=== PATIENT | female | born 1945 | race Caucasian/White ===

== ENCOUNTER 2019-05-11 18:15 | Inpatient (IN) | payer MEDICARE, BC ==
[~2019-05-11] VITALS: Ht 157.5 cm; Wt 66.2 kg
--- NOTE | 2019-05-11 18:28 | NUR ---
BB BY EMS TO ER; C/O SEVERE NAUSEA, JUST HAD HER CHEMOTHERAPY TODAY; SHE ALSO C/O FEVER. PATIENT A/OX4, BREATHING EVEN AND UNLABORED, NO SOB NOTED. KEPT COMFORTABLE. ATTACHED TO THE MONITOR, PATIENT REFUSED TO CHANGE INTO GOWN AT THIS TIME.
[2019-05-11] MEDS ORDERED: IV NS 0.9% 1,000 ML BAG IV ONE ×2 (18:30→19:30)
[2019-05-11] MEDS ORDERED: ONDANSETRON HCL/PF 4 MG/2 ML VIAL IVP ONE (18:30)
[2019-05-11] MEDS ORDERED: ONDANSETRON HCL/PF 4 MG/2 ML VIAL ONE ×3 (18:44→20:56)
[2019-05-11] MEDS ORDERED: ACETAMINOPHEN ES 500 MG TABLET ONE (18:49)
[2019-05-11 18:52] LABS: BASOPHILS % (AUTO) 0.7 % (0.0-2.0); HEMATOCRIT 22 % (33-45); HEMOGLOBIN 7.4 g/dL (11.5-14.8); MEAN CORPUSCULAR HGB CONC 35 g/dl (31.0-36.0); MEAN CORPUSCULAR VOLUME 103 fL (82-100); MONOCYTES # (AUTO) 0.1 /CMM (0.1-1.30); MONOCYTES % (AUTO) 5.1 % (2.0-12.0); NEUTROPHILS # (AUTO) 1.7 /CMM (1.8-8.9); NEUTROPHILS % (AUTO) 92.2 % (43.0-81.0)
[2019-05-11] MEDS ORDERED: APIX5TAB PO (19:06)
[2019-05-11] MEDS ORDERED: PRED20TA PO (19:06)
[2019-05-11] MEDS ORDERED: [UNRECOGNIZED DRUG - REMARK] (19:06)
[2019-05-11] MEDS ORDERED: ACET-868 PO (19:06)
[2019-05-11] MEDS ORDERED: PANT40TA2 PO (19:06)
[2019-05-11] MEDS ORDERED: LEVO137T2 PO (19:06)
[2019-05-11] MEDS ORDERED: MELA5TAB PO (19:06)
[2019-05-11] MEDS ORDERED: PEGF6SYR SQ (19:06)
[2019-05-11] MEDS ORDERED: CHOL100044 PO (19:06)
[2019-05-11] MEDS ORDERED: FAMO20TA8 PO (19:06)
[2019-05-11] MEDS ORDERED: DIPH25CA83 PO (19:06)
[2019-05-11 19:07] LABS: ALANINE AMINOTRANSFERASE 13 U/L (12-78); ALKALINE PHOSPHATASE 150 U/L (46-116); ASPARTATE AMINOTRANSFERASE 8 U/L (15-37); BILIRUBIN,DIRECT 0.1 mg/dL (0.0-0.2); BILIRUBIN,TOTAL 0.2 mg/dL (0.2-1.0); CALCIUM, SERUM 8.8 mg/dL (8.5-10.1); CARBON DIOXIDE 24 mmol/L (21-32); CHLORIDE 108 mmol/L (98-107); GLUCOSE 138 mg/dL (74-106); LIPASE 85 U/L (73-393); SODIUM SERUM 141 mmol/L (136-145); TOTAL PROTEIN, SERUM 5.8 g/dL (6.4-8.2); UREA NITROGEN, BLOOD 24 mg/dL (7-18); WHITE BLOOD COUNT (AUTO) 1.9 K/uL (4.3-11.0)
[2019-05-11 19:08] LABS: PLATELET COUNT (AUTO) 49 /CMM (150-450)
--- NOTE | 2019-05-11 19:16 | NUR ---
ASSUMED CARE. PT RESTING IN BED QUIETLY, NO ACUTE DISTRESS NOTED, RESP EVEN AND UNLABORED. PT DENIES PAIN OR DISCOMFORT AT THIS TIME BUT PT STILL C/O GENERALIZED WEAKNESS. PT ON CARDIAC MONITORING, CONTINUOUS POX. PORT-A-CATH NOTED ON THE MIGUEL AND FLUSSHES WELL WITH NO SIGN OF INFILTRATION NOTED. CALL LIGHT WITHIN REACH. WILL CONTINUE TO MONITOR PT CLOSELY.
[2019-05-11] MEDS ORDERED: ACETAMINOPHEN ES 500 MG TABLET PO ONE (19:30)
--- NOTE | 2019-05-11 19:42 | NUR ---
ER MD AT BEDSIDE TO RE-EVAL PT, SPOKE TO PT REGARDING HOSPITAL ADMISSION. PT AGREED. PT C/O NAUSEA. ER MD MADE AWARE WITH ORDERS RECEIVED. WILL CARRY OUT ORDERS.
--- NOTE | 2019-05-11 19:45 | NUR ---
PT MEDICATED ORDERED.
--- NOTE | 2019-05-11 19:46 | NUR ---
ENDORSED TO ED RN FOR OLVIN.
[2019-05-11 19:55] LABS: LYMPHOCYTES % (MANUAL) 4 % (16-48); MONOCYTES % (MANUAL) 6 % (0-11.0); NEUTROPHILS % (MANUAL) 90 (42-76)
[2019-05-11] MEDS ORDERED: ONDANSETRON HCL/PF - ER 4 MG/2 ML VIAL IV ONE ×2 (20:00→23:00)
[2019-05-11 20:26] LABS: APPEARANCE,URINE Slightly Cloudy (CLEAR); BILIRUBIN,URINE Negative (NEGATIVE); BLOOD, URINE Small Ery/uL (NEGATIVE); COLOR,URINE Yellow (YELLOW); KETONES,URINE Negative (NEGATIVE); LEUKOCYTE ESTERASE ,URINE Small (NEGATIVE); NITRITE, URINE Negative (NEGATIVE); PH,URINE 5.5 (5.0-8.0); PROTEIN,URINE 30 mg/dl (NEGATIVE); UGLUCOSE Negative (NEGATIVE); UROBILINOGEN,URINE 0.2 EU/dL (0.2)
[2019-05-11 20:37] LABS: BACTERIA,URINE Many /HPF (None Seen); SQUAMOUS EPITHELIAL CELL,UR Moderate /HPF (None Seen)
--- NOTE | 2019-05-11 20:43 | NUR ---
SPOKE WITH YARI AND PAGED DR. PALM, EGG GRADER DOCTOR FOR DR. ROSE
--- NOTE | 2019-05-11 20:45 | NUR ---
DR. TAVERAS ON THE PHONE WITH DR. PALM
[2019-05-11] MEDS ORDERED: VANCOMYCIN 1 GM VIAL ONE (20:56)
[2019-05-11] MEDS ORDERED: PIPERACILLIN /TAZOBACTAM 3.375 G VIAL IV ONE (20:56)
[2019-05-11] MEDS ORDERED: VANCOMYCIN 1 GM in IV D5W 250 ML IV ONE (21:00)
[2019-05-11] MEDS ORDERED: PIPERACILLIN /TAZOBACTAM 3.375 G in IV D5W 50 ML IV ONE (21:00)
[2019-05-11] MEDS ORDERED: METOCLOPRAMIDE HCL 10 MG/2 ML VIAL ONE (21:29)
[2019-05-11] MEDS ORDERED: METOCLOPRAMIDE HCL 10 MG/2 ML VIAL IV STA (21:33)
--- NOTE | 2019-05-11 21:46 | NUR ---
LACTIC ACID: [id number]
[2019-05-11] MEDS ORDERED: IBUPROFEN 400 MG TABLET PO STA (21:49)
[2019-05-11] MEDS ORDERED: MAG HYDROX/AL HYDROX/SIMETH 30 ML UDC PO PRN (22:00)
[2019-05-11] MEDS ORDERED: HYDROCODONE/APAP 5/325MG 1 EACH TABLET PO PRN (22:00)
[2019-05-11] MEDS ORDERED: Z GUARD REMEDY 2 OZ OINT TP PRN (22:00)
[2019-05-11] MEDS ORDERED: ZOLPIDEM TARTRATE 5 MG TABLET PO PRN (22:00)
[2019-05-11] MEDS ORDERED: MAGNESIUM HYDROXIDE 30 ML UDC PO PRN (22:00)
[2019-05-11] MEDS ORDERED: Medication Not On Formulary EA (Melatonin 10 MG) PO SCH (22:00)
[2019-05-11] MEDS ORDERED: IBUPROFEN 600 MG TABLET PO ONE (22:20)
--- NOTE | 2019-05-11 22:41 | NUR ---
REPORT CALLED TO COMMUNICATIONS CONSULTANTJUDY ROMAN. WILL TRANSPORT PT VIA ACLS PROTOCOL.
[2019-05-11 23:23] LABS: ALBUMIN 2.4 g/dL (3.4-5.0); BILIRUBIN,DIRECT 0.1 mg/dL (0.0-0.2); BILIRUBIN,TOTAL 0.2 mg/dL (0.2-1.0); TOTAL PROTEIN, SERUM 4.7 g/dL (6.4-8.2)
[2019-05-11] MEDS ORDERED: CEFTRIAXONE 1 G in IV D5W 50 ML IV SCH (23:30)
--- NOTE | 2019-05-11 23:30 | NUR ---
JOSS RN NOTES RECEIVED REPORT FROM METER/RELAY TECHNICIAN ED. RECEIVED PATIENT ON AUDREY. PATIENT IS A/A/OX4, ON RA WITH SPO2 OF 96%. NO COMPLAINT OF SOB, NO PAIN. PATIENT COMPLAINS OF NAUSEA AND ASKED FOR MEDICATION. PATIENT PLACED ON SHIP'S CARPENTER WITH ST. SKIN ASSESSMENT HAS BEEN DONE AND PICTURES PLACED IN THE CHART. RIGHT UPPER ARM PORT IS IN PLACE. RIGHT WRIST G20 IV LINE IS PATIENT AND INTACT. ALL SAFETY MEASURES ARE IN PLACE, BED IN LOW, LOCKED POSITION, CALL LIGHT IN PLACE. WILL CONTINUE TO MONITOR PATIENT CLOSELY.
[2019-05-11] MEDS ORDERED: CEFTRIAXONE 1 G VIAL ONE (23:42)
[2019-05-11] MEDS: diphenhydrAMINE HCL 25 MG CAPSULE PO SCH (23:49)
[2019-05-11] MEDS: IV NS 0.9% 1,000 ML IV SCH (23:49)
[2019-05-12] VITALS (10 sets, daily range): BP systolic 105–139; BP diastolic 55–88
--- NOTE | 2019-05-12 07:30 | NUR ---
RN NOTES RECEIVED PATIENT SITTING AT THE EDGE OF THE BED, ORIENTEDX4, ABLE TO MAKE NEEDS KNOWN. NOT ON ANY FORM OF DISTRESS, ON OXYGEN VIA NASAL CANNULA AT 2LPM, NO SOB NOTED. PATIENT NO COMPLAINTS OF PAIN OF ANY KIND. SINUS RHYTHM ON THE MONITOR WITH HR ON THE 80'S. PATIENT WITH CONCERNS REGARDING MEDICATION- ADDRESSED BY INFORMING THAT THE MD WILL BE NOTIFIED REGARDING THE CONCERNS. ENCOURAGE TO HELP FOR HELP/ ASSISTANCE, VERBALIZE FEELING AND CONCERNS THAT I CAN ADDRESS, CALL LIGHT PLACED WITHIN REACH, SAFETY MEASURES OBSERVED AND MAINTAINED, WILL IMPLEMENT ISOLATION PRECAUTIONS, WILL CONTINUE TO MONITOR PATIENT CLOSELY
[2019-05-12 07:31] LABS: CALCIUM, SERUM 8.2 mg/dL (8.5-10.1); MAGNESIUM 1.8 mg/dL (1.8-2.4); PHOSPHORUS 3.3 mg/dL (2.5-4.9); POTASSIUM 3.7 mmol/L (3.5-5.1)
[2019-05-12 07:34] LABS: BASOPHILS % (AUTO) 0.4 % (0.0-2.0); LYMPHOCYTES # (AUTO) 0.1 /CMM (0.8-4.8); LYMPHOCYTES % (AUTO) 2.8 % (20.0-44.0); MEAN CORPUSCULAR HGB CONC 34 g/dl (31.0-36.0); MEAN CORPUSCULAR VOLUME 104 fL (82-100); MONOCYTES # (AUTO) 0.5 /CMM (0.1-1.30); MONOCYTES % (AUTO) 14.8 % (2.0-12.0); NEUTROPHILS # (AUTO) 2.6 /CMM (1.8-8.9); WHITE BLOOD COUNT (AUTO) 3.2 K/uL (4.3-11.0)
[2019-05-12 07:47] LABS: RED BLOOD CELL COUNT(AUTO) 1.83 MIL/uL (4.0-5.2)
[2019-05-12 07:50] LABS: HEMOGLOBIN 6.4 g/dL (11.5-14.8)
[2019-05-12 07:51] LABS: HEMATOCRIT 19 % (33-45); PLATELET COUNT (AUTO) 33 /CMM (150-450)
[2019-05-12] MEDS: PANTOPRAZOLE 40 MG TABLET.DR PO SCH (07:55)
[2019-05-12] MEDS: LEVOTHYROXINE SODIUM 137 MCG TABLET PO SCH (07:55)
[2019-05-12] MEDS: IV NS 0.9% 1,000 ML IV SCH (08:03)
[2019-05-12] MEDS: ONDANSETRON HCL/PF 4 MG/2 ML VIAL IVP PRN ×2 (08:03→18:40)
[2019-05-12] MEDS ORDERED: APIXABAN 5 MG TABLET PO SCH (09:00)
[2019-05-12] MEDS: CHOLECALCIFEROL 1,000 UNIT TABLET (VIT D3) PO SCH (09:01)
[2019-05-12] MEDS: FAMOTIDINE (20 MG) 20 MG TABLET PO SCH (09:01)
[2019-05-12] MEDS: predniSONE 20 MG TABLET PO SCH (09:01)
[2019-05-12 09:28] LABS: BAND % (MANUAL) 7 % (0.0-5.0); EOSINOPHILS % (MANUAL) 1 % (0-4); LYMPHOCYTES % (MANUAL) 6 % (16-48); MONOCYTES % (MANUAL) 13 % (0-11.0); NEUTROPHILS % (MANUAL) 73 (42-76)
--- NOTE | 2019-05-12 12:00 | NUR ---
RN NOTES ADMINISTERED APIXABAN 5MG PO AT THIS TIME AFTER CONFIRMING WITH DR. ZHENG THAT MEDICATION IS OKAY TO ADMINISTERED DESPITE THE CRITICAL VALUES. ALSO SPOKE TO PHARMACIST ON DUE THAT IT IS OKAY TO GIVE MEDICATION DESPITE ANOTHER DOSE IS DUE AT 1700 PM
[2019-05-12] MEDS: CEFTRIAXONE 2 G in IV D5W 100 ML IV SCH (14:07)
[2019-05-12] MEDS: ACETAMINOPHEN 325 MG TABLET PO PRN (16:26)
--- NOTE | 2019-05-12 19:00 | NUR ---
RN NOTES ENDORSED PATIENT FOR CONTINUITY OF CARE. NOT ON ANY FORM OF DISTRESS. S/P 1 UNIT OF PRBC ADMINISTRATION. ALL NURSING NEEDS ATTENDED AND MET. SAFETY MEASURES IN PLACE AT ALL TIMES. CALL LIGHT WITHIN REACH. REVERSE ISOLATION IMPLEMENTED
--- NOTE | 2019-05-12 19:30 | NUR ---
REMOTE ADVISOR NOTE: RECEIVED PT ON BED ALERT AND ORIENTED X3. ABLE TO MAKE NEEDS KNOWN. NO APPARENT DISTRESS NOTED. NO COMPLAINTS OF PAIN OR DISCOMFORT AT THIS TIME. ON ROOM AIR, BREATHING EVEN AND UNLABORED WITH NORMAL RESPIRATIONS. ON TELE MONITOR SINUS RHYTHM HR 62 BPM. IV ON RIGHT WRIST #20 INTACT AND PATENT, IVF INFUSING WELL. KEPT CLEAN, DRY AND COMFORTABLE. CALL LIGHT PLACED WITHIN REACH. SAFETY AND FALL PRECAUTIONS OBSERVED AND MAINTAINED. WILL CONTINUE TO MONITOR PT.
[2019-05-12] MEDS: IV NS 0.9% 1,000 ML IV PRN (21:47)
[2019-05-12] MEDS: diphenhydrAMINE HCL 25 MG CAPSULE PO SCH (21:59)
[2019-05-13] VITALS: BP 132/63
[2019-05-13 04:00] VITALS: BP 133/91
[2019-05-13] MEDS: IV NS 0.9% 1,000 ML IV PRN ×2 (05:42→17:52)
--- NOTE | 2019-05-13 06:32 | NUR ---
APPLIED BEHAVIOR SPECIALIST NOTE: NO CHANGES NOTED THROUGHOUT THE SHIFT. NO APPARENT DISTRESS NOTED. DENIES PAIN AND DISCOMFORT AT THIS TIME. ON ROOM AIR, NO SOB NOTED. IV ON RIGHT WRIST #20 INTACT AND PATENT, IVF INFUSING WELL. KEPT CLEAN, DRY AND COMFORTABLE. CALL LIGHT PLACED WITHIN REACH. WILL ENDORSE TO DAY SHIFT RN FOR CONTINUITY OF CARE.
[2019-05-13] MEDS: LEVOTHYROXINE SODIUM 137 MCG TABLET PO SCH (07:53)
[2019-05-13] MEDS: PANTOPRAZOLE 40 MG TABLET.DR PO SCH (07:53)
[2019-05-13 08:00] VITALS: BP 175/79
--- NOTE | 2019-05-13 08:00 | NUR ---
TELE1/RN AM SHIFT INITIAL NOTES RECEIVED PT AWAKE SITTING IN BED, PT A/O X 4 DENIES ANY SYMPTOMS AT THIS TIME, NO ACUTE CHANGE OF CONDITION. PT ON ROOM AIR SATURATING @ 96%, RESPIRATIONS EVEN & UNLABORED, LUNG SOUNDS CLEAR. ON TELE WITH SINUS RHYTHM, HR 80. WITH ON GOING IN INFUSION OF NS @ 125CC/HR, IV SITE PATENT WITH NO S/S OF INFECTION. PT IS COMFORTABLE AT THIS TIME. CL WITHIN REACHED, SAFETY MAINTAINED AND REVERSE ISOLATION OBSERVED. ON GOING MONITORING.
[2019-05-13 08:02] LABS: BASOPHILS % (AUTO) 0.2 % (0.0-2.0); EOSINOPHILS % (AUTO) 1.4 % (0.0-6.0); HEMATOCRIT 24 % (33-45); HEMOGLOBIN 8.1 g/dL (11.5-14.8); LYMPHOCYTES # (AUTO) 0.1 /CMM (0.8-4.8); LYMPHOCYTES % (AUTO) 1.3 % (20.0-44.0); MEAN CORPUSCULAR HGB CONC 35 g/dl (31.0-36.0); MEAN CORPUSCULAR VOLUME 101 fL (82-100); MONOCYTES # (AUTO) 0.7 /CMM (0.1-1.30); MONOCYTES % (AUTO) 8.6 % (2.0-12.0); NEUTROPHILS # (AUTO) 7.3 /CMM (1.8-8.9); NEUTROPHILS % (AUTO) 88.5 % (43.0-81.0); RED BLOOD CELL COUNT(AUTO) 2.32 MIL/uL (4.0-5.2); WHITE BLOOD COUNT (AUTO) 8.3 K/uL (4.3-11.0)
[2019-05-13] MEDS: CHOLECALCIFEROL 1,000 UNIT TABLET (VIT D3) PO SCH (08:02)
[2019-05-13] MEDS: predniSONE 20 MG TABLET PO SCH (08:02)
[2019-05-13] MEDS: FAMOTIDINE (20 MG) 20 MG TABLET PO SCH (08:02)
[2019-05-13 08:16] LABS: PLATELET COUNT (AUTO) 31 /CMM (150-450)
[2019-05-13 08:17] LABS: CALCIUM, SERUM 8.3 mg/dL (8.5-10.1); MAGNESIUM 1.6 mg/dL (1.8-2.4); POTASSIUM 3.4 mmol/L (3.5-5.1)
[2019-05-13 08:48] LABS: BAND % (MANUAL) 5 % (0.0-5.0); EOSINOPHILS % (MANUAL) 1 % (0-4); MONOCYTES % (MANUAL) 2 % (0-11.0); NEUTROPHILS % (MANUAL) 92 (42-76)
[2019-05-13] MEDS ORDERED: POTASSIUM CHLORIDE 20 MEQ TAB.PRT.SR PO SCH (11:30)
--- NOTE | 2019-05-13 11:30 | NUR ---
TELE1/RN ROUNDS - DR. ZHENG PT SEEN & EXAMINED BY DR. ZHENG, NO NEW ORDERS RECEIVED AT THIS TIME. MONITORING CONTINUED.
[2019-05-13] MEDS: Magnesium 1GM/D5W 100ML PREMIX 100 ML IV SCH ×2 (11:53→15:11)
[2019-05-13 12:00] VITALS: BP 116/75
[2019-05-13 12:09] LABS: THYROID STIMULATING HORMONE 4.344 uIU/mL (0.358-3.74)
--- NOTE | 2019-05-13 12:30 | NUR ---
TELE11/RN PHYSICAL THERAPY PT SEEN & EVALUATED BY PHYSICAL THERAPIST.
[2019-05-13 13:19] LABS: LYMPHOCYTES % (MANUAL) 0 % (16-48)
[2019-05-13] MEDS: CEFTRIAXONE 2 G in IV D5W 100 ML IV SCH (13:28)
[2019-05-13 16:00] VITALS: BP 120/79
--- NOTE | 2019-05-13 17:30 | NUR ---
TELE1/RN PM ROUNDS NO ACUTE CHANGE OF CONDITION. PM CARE PROVIDED. MONITORING CONTINUED.
--- NOTE | 2019-05-13 18:25 | NUR ---
TELE1/RN ROUNDS - DR. WATKINS PT SEEN & EXAMINED BY DR. WATKINS, NO NEW ORDERS RECEIVED AT THIS TIME.
--- NOTE | 2019-05-13 19:15 | NUR ---
TELE1/RN AM SHIFT END NOTES ALL NEEDS MET. NO ACUTE CHANGE OF CONDITION NOTED DURING THE SHIFT. PT ENDORSED TO PM NURSE TO CONTINUE CARE. CL WITHIN REACHED, SAFETY MAINTAINED AND REVERSE ISOLATION OBSERVED.
--- NOTE | 2019-05-13 19:45 | NUR ---
SUSTAINABILITY ENGINEER NOTE: RECEIVED PT SITTING AT THE EDGE OF THE BED, ALERT AND ORIENTED X3. ABLE TO MAKE NEEDS KNOWN. NO APPARENT DISTRESS NOTED. NO COMPLAINTS OF PAIN OR DISCOMFORT AT THIS TIME. ON ROOM AIR, BREATHING EVEN AND UNLABORED WITH NORMAL RESPIRATIONS. ON TELE MONITOR SINUS RHYTHM HR 74 BPM. IV ON RIGHT WRIST #20 INTACT AND PATENT, IVF INFUSING WELL. KEPT CLEAN, DRY AND COMFORTABLE. CALL LIGHT PLACED WITHIN REACH. SAFETY AND FALL PRECAUTIONS OBSERVED AND MAINTAINED. WILL CONTINUE TO MONITOR PT.
[2019-05-13 20:00] VITALS: BP 127/70
[2019-05-13] MEDS: diphenhydrAMINE HCL 25 MG CAPSULE PO SCH (21:32)
[2019-05-14] VITALS: BP 153/76
[2019-05-14] MEDS: IV NS 0.9% 1,000 ML IV PRN (02:12)
[2019-05-14 04:00] VITALS: BP 126/70
[2019-05-14 06:29] LABS: BASOPHILS % (AUTO) 0.2 % (0.0-2.0); EOSINOPHILS % (AUTO) 1.2 % (0.0-6.0); HEMATOCRIT 23 % (33-45); HEMOGLOBIN 7.9 g/dL (11.5-14.8); LYMPHOCYTES # (AUTO) 0.2 /CMM (0.8-4.8); LYMPHOCYTES % (AUTO) 1.8 % (20.0-44.0); MEAN CORPUSCULAR HGB CONC 34 g/dl (31.0-36.0); MEAN CORPUSCULAR VOLUME 101 fL (82-100); MONOCYTES # (AUTO) 0.9 /CMM (0.1-1.30); MONOCYTES % (AUTO) 9.2 % (2.0-12.0); NEUTROPHILS # (AUTO) 8.4 /CMM (1.8-8.9); NEUTROPHILS % (AUTO) 87.6 % (43.0-81.0); RED BLOOD CELL COUNT(AUTO) 2.28 MIL/uL (4.0-5.2); WHITE BLOOD COUNT (AUTO) 9.6 K/uL (4.3-11.0)
[2019-05-14 06:46] LABS: PLATELET COUNT (AUTO) 25 /CMM (150-450)
[2019-05-14 06:52] LABS: CREATININE 0.9 mg/dL (0.6-1.3); MAGNESIUM 1.9 mg/dL (1.8-2.4); PHOSPHORUS 3.1 mg/dL (2.5-4.9); POTASSIUM 3.7 mmol/L (3.5-5.1)
--- NOTE | 2019-05-14 06:52 | NUR ---
BULB TESTER NOTE: LAB CALLED REGARDING CRITICAL RESULT FOR PLATELET 25. DR. PORTILLO NOTIFIED WITH NO NEW ORDERS. WILL ENDORSE TO DAY SHIFT RN FOR CONTINUITY OF CARE.
--- NOTE | 2019-05-14 07:19 | NUR ---
HIGHWAY DESIGN ENGINEER NOTE: NO CHANGES NOTED THROUGHOUT THE SHIFT. NO APPARENT DISTRESS NOTED. DENIES PAIN AND DISCOMFORT AT THIS TIME. ON ROOM AIR, BREATHING EVEN AND UNLABORED WITH NORMAL RESPIRATION. IV ON RIGHT WRIST #20 INTACT AND PATENT, IVF INFUSING WELL. KEPT CLEAN, DRY AND COMFORTABLE. CALL LIGHT PLACED WITHIN REACH. WILL ENDORSE TO DAY SHIFT RN FOR CONTINUITY OF CARE.
[2019-05-14 07:20] LABS: BAND % (MANUAL) 6 % (0.0-5.0); EOSINOPHILS % (MANUAL) 2 % (0-4); LYMPHOCYTES % (MANUAL) 3 % (16-48); MONOCYTES % (MANUAL) 7 % (0-11.0); NEUTROPHILS % (MANUAL) 82 (42-76)
[2019-05-14 08:00] VITALS: BP 156/86
--- NOTE | 2019-05-14 08:00 | NUR ---
TELE1/RN AM SHIFT INITIAL NOTES RECEIVED PT AWAKE SITTING IN BED, PT A/O X 3, COMPLAINT OF BEING NAUSEAS, NO ACUTE CHANGE OF CONDITION NOTED. ON ROOM AIR SATURATING @ 97%, RESPIRATIONS EVEN & UNLABORED, LUNG SOUNDS CLEAR. ON TELE MONITORING, SINUS RHYTHM, HR 77. WITH ON GOING IV INFUSION OF NS @ 125CC/HR, IV SITE PATENT WITH NO S/S OF INFECTION. SCHEDULED AM MEDS TO BE GIVEN WELL PRN ZOFRAN. CL WITHIN REACHED, SAFETY MAINTAINED AND REVERSE ISOLATION OBSERVED. ON GOING MONITORING.
[2019-05-14 08:08] LABS: IMMUNOGLOBULIN A, SERUM 6 mg/dL (64-422); IMMUNOGLOBULIN G, SERUM 238 mg/dL (700-1600); IMMUNOGLOBULIN M, SERUM 10 mg/dL (26-217)
[2019-05-14] MEDS: PANTOPRAZOLE 40 MG TABLET.DR PO SCH (08:08)
[2019-05-14] MEDS: CHOLECALCIFEROL 1,000 UNIT TABLET (VIT D3) PO SCH (08:08)
[2019-05-14] MEDS: predniSONE 20 MG TABLET PO SCH (08:08)
[2019-05-14] MEDS: LEVOTHYROXINE SODIUM 137 MCG TABLET PO SCH (08:08)
[2019-05-14] MEDS: FAMOTIDINE (20 MG) 20 MG TABLET PO SCH (08:08)
[2019-05-14] MEDS: ONDANSETRON HCL/PF 4 MG/2 ML VIAL IVP PRN (08:09)
[2019-05-14 09:07] LABS: IMMUNOGLOBULIN A, SERUM <5 mg/dL (64-422); IMMUNOGLOBULIN G, SERUM 163 mg/dL (700-1600); IMMUNOGLOBULIN M, SERUM 8 mg/dL (26-217)
[2019-05-14] MEDS: ACETAMINOPHEN 325 MG TABLET PO PRN (10:27)
[2019-05-14 12:00] VITALS: BP 143/62
[2019-05-14] MEDS: CEFTRIAXONE 2 G in IV D5W 100 ML IV SCH (12:11)
--- NOTE | 2019-05-14 13:05 | NUR ---
TELE1/RN ROUNDS - DR. ZHENG PT SEEN & EXAMINED BY DR. ZHENG. NO NEW ORDER RECEIVED AT THIS TIME.
--- NOTE | 2019-05-14 14:49 | NUR ---
TELE1/DIRECTOR OF RESIDENTIAL SERVICES OF CARE PT ENDORSED TO NURSE PAM TO CONTINUE CARE.
--- NOTE | 2019-05-14 14:50 | NUR ---
RN NOTE RECEIVED REPORT FROM JUDY WOLF. PATIENT IN BED, AWAKE AND ALERTX4. NO COMPLAINS OF ANY PAIN NOR SOB AT THIS TIME.
[2019-05-14 16:00] VITALS: BP 149/80
--- NOTE | 2019-05-14 19:12 | NUR ---
RN CLOSING NOTE PATIENT IN BED AWAKE AND ALERT. NO COMPLAINS OF ANY PAIN NO SOB AT THIS TIME. ALL MEDS GIVEN THIS AM. PLATELETS STILL LOW, MD AWARE, NO NEW ORDERS. BED LOCKED AND IN LOWEST POSITION. CALL LIGHT WITHIN REACH. WILL ENDORSE TO NOC SHIFT
[2019-05-14 20:00] VITALS: BP 128/73
--- NOTE | 2019-05-14 20:00 | NUR ---
PM RN INITIAL NOTES RECEIVED BEDSIDE REPORT FROM AM RN. PT AWAKE SITTING IN BED, PT A/O X 4, NO COMPLAINS OF PAIN AT THIS TIME, ON ROOM AIR SATURATING @ 98%, RESPIRATIONS EVEN & UNLABORED, LUNG SOUNDS CLEAR. ON TELE MONITORING, SINUS RHYTHM. IV SITE PATENT WITH NO S/S OF INFECTION. CL WITHIN REACHED, SAFETY MAINTAINED AND REVERSE ISOLATION OBSERVED. ON GOING MONITORING.
[2019-05-14] MEDS: diphenhydrAMINE HCL 25 MG CAPSULE PO SCH (22:30)
[2019-05-15] VITALS: BP 137/69
[2019-05-15 04:00] VITALS: BP 132/67
[2019-05-15 06:28] LABS: BASOPHILS % (AUTO) 0.1 % (0.0-2.0); EOSINOPHILS % (AUTO) 1.4 % (0.0-6.0); HEMATOCRIT 21 % (33-45); HEMOGLOBIN 7.6 g/dL (11.5-14.8); LYMPHOCYTES # (AUTO) 0.1 /CMM (0.8-4.8); LYMPHOCYTES % (AUTO) 1.1 % (20.0-44.0); MEAN CORPUSCULAR HGB CONC 36 g/dl (31.0-36.0); MEAN CORPUSCULAR VOLUME 99 fL (82-100); MONOCYTES # (AUTO) 0.9 /CMM (0.1-1.30); MONOCYTES % (AUTO) 8.6 % (2.0-12.0); NEUTROPHILS % (AUTO) 88.8 % (43.0-81.0); RED BLOOD CELL COUNT(AUTO) 2.15 MIL/uL (4.0-5.2); WHITE BLOOD COUNT (AUTO) 10.1 K/uL (4.3-11.0)
[2019-05-15 06:47] LABS: PLATELET COUNT (AUTO) 18 /CMM (150-450)
[2019-05-15 06:51] LABS: CALCIUM, SERUM 8.1 mg/dL (8.5-10.1); CREATININE 0.8 mg/dL (0.6-1.3); MAGNESIUM 1.8 mg/dL (1.8-2.4); PHOSPHORUS 3.5 mg/dL (2.5-4.9); POTASSIUM 3.5 mmol/L (3.5-5.1)
--- NOTE | 2019-05-15 07:07 | NUR ---
RN NOTES GOT A CALL FROM LAB BHAVIN PATIENT'S PLATELETS ARE 18. MD PORTILLO NOTIFIED. 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 PT IS IN BED RESTING. NO ACUTE CHANGES NOTED DURING MY 12 HR SHIFT.
[2019-05-15] MEDS: ONDANSETRON HCL/PF 4 MG/2 ML VIAL IVP PRN ×2 (07:24→16:26)
[2019-05-15 08:00] VITALS: BP 157/77
--- NOTE | 2019-05-15 08:00 | NUR ---
TELE1/RN AM SHIFT INITIAL NOTES RECEIVED PT AWAKE SITTING IN BED, PT A/O X 4, DENIES ANY SYMPTOMS AT THIS TIME, NO CHANGE OF CONDITION, LUNG SOUNDS CLEAR. ON TELE MONITORING, SINUS RHYTHM, HR 77. IV SITE FLUSHED, PATENT WITH NO S/S OF INFECTION, SL. SCHEDULED AM MEDS TO BE GIVEN. CL WITHIN REACHED, SAFETY MAINTAINED AND REVERSE ISOLATION OBSERVED. ON GOING MONITORING.
[2019-05-15 08:33] LABS: BAND % (MANUAL) 8 % (0.0-5.0); LYMPHOCYTES % (MANUAL) 2 % (16-48); MONOCYTES % (MANUAL) 6 % (0-11.0); NEUTROPHILS % (MANUAL) 84 (42-76)
[2019-05-15] MEDS: LEVOTHYROXINE SODIUM 137 MCG TABLET PO SCH (08:41)
[2019-05-15] MEDS: PANTOPRAZOLE 40 MG TABLET.DR PO SCH (08:41)
[2019-05-15] MEDS: FAMOTIDINE (20 MG) 20 MG TABLET PO SCH (08:41)
[2019-05-15] MEDS: predniSONE 20 MG TABLET PO SCH (08:41)
[2019-05-15] MEDS: CHOLECALCIFEROL 1,000 UNIT TABLET (VIT D3) PO SCH (08:42)
--- NOTE | 2019-05-15 11:30 | NUR ---
MS1/RN GRISELDA - Ant FINLEY, CAMMY PT SEEN & EXAMINED BY CAMMY FINLEY. NO NEW ORDER RECEIVED AT THIS TIME.
[2019-05-15] MEDS ORDERED: LEVO750T21 PO (11:38)
[2019-05-15] MEDS: CEFTRIAXONE 2 G in IV D5W 100 ML IV SCH (12:58)
[2019-05-15 16:00] VITALS: BP_SYST 118; BP_SYST 142; BP_DIAS 56; BP_DIAS 79
--- NOTE | 2019-05-15 17:00 | NUR ---
MS1/RN AFTERNOON ROUNDS NO CHANGE OF CONDITION. PT'S PRESCRIPTION FAXED TO PHARMACY. PT WILL BE DISCHARGE HOME LATER THIS EVENING.
--- NOTE | 2019-05-15 19:29 | NUR ---
MS1/RN AM SHIFT END NOTES ALL NEEDS MET. NO ACUTE CHANGE OF CONDITION NOTED DURING THE SHIFT. PT ENDORSED TO PM NURSE TO COMPLETE DISCHARGE PROTOCOLS. CL WITHIN REACHED AND SAFETY MAINTAINED.
[2019-05-15 20:00] VITALS: BP 144/75
--- NOTE | 2019-05-15 20:04 | NUR ---
RN NOTE PATIENT LEFT HOME WITH HOME HEALTH, NO DISTRESS NOTED, VITAL SIGNS STABLE, REMOVED IV FROM RIGHT WRIST, NO S/S OF INFECTION/REDNESS/BLEEDING NOTED, SKIN PICTURES TAKING BY AM SHIFT PLACED IN THE CHART, BELONGING'S LIST SIGNED AND IN THE CHART, PRESCRIPTION FOR LEVOQUIN PROVIDED TO PATIENT AND COPY IS PLACED IN THE CHART, ON ROOM AIR, AMBULATES STEADILY WITH WALKER, ACCOMPANIED WITH 2 NURSES AND DAUGHTER TO THE CAR, RIGHT UPPER ARM PORT CATH FOR CHEMOTHERAPY IN PLACE/INTACT, ALL SAFETY MEASURES TAKEN
[2019-05-16 05:11] LABS: *SPE A/G RATIO 1.2 (0.7-1.7); *SPE ALBUMIN 2.4 g/dL (2.9-4.4); *SPE ALPHA-1-GLOBULIN 0.4 g/dL (0.0-0.4); *SPE ALPHA-2-GLOBULIN 0.8 g/dL (0.4-1.0); *SPE BETA GLOBULIN 0.8 g/dL (0.7-1.3); *SPE M-SPIKE Not Observed g/dL (Not Observed); *SPEGAMMA GLOBULIN 0.1 g/dL (0.4-1.8)
[2019-05-16 07:10] LABS: *IFE IMMUNOFIXATION RESULT Note: (.)
[2019-05-16 08:09] LABS: *SPE A/G RATIO 1.2 (0.7-1.7); *SPE ALBUMIN 2.8 g/dL (2.9-4.4); *SPE ALPHA-1-GLOBULIN 0.4 g/dL (0.0-0.4); *SPE ALPHA-2-GLOBULIN 0.9 g/dL (0.4-1.0); *SPE BETA GLOBULIN 0.8 g/dL (0.7-1.3); *SPE GLOBULIN, TOTAL 2.3 g/dL (2.2-3.9); *SPE M-SPIKE Not Observed g/dL (Not Observed); *SPEGAMMA GLOBULIN 0.2 g/dL (0.4-1.8)
[2019-06-06] MEDS ORDERED: LIDO30AD10 TP (11:16)
[2019-06-06] MEDS ORDERED: APIX5TAB4 PO (11:16)
[2019-06-06] MEDS ORDERED: ONDA4TAB5 SL (11:20)
[2019-06-06] MEDS ORDERED: MULT1TAB73 PO (11:21)
[2019-06-06] MEDS ORDERED: PROT946L PO (11:22)
[2019-06-06] MEDS ORDERED: CEFE2FRO IV (11:28)
== END 2019-05-15 19:52 | disposition home or self-care (01) | DRG 871 ==
LOC: ER 18:18 → TELE1 20:00 → MEDSG1 05-15 11:00
PROVIDERS: ADMIT Family Medicine; ATTEND Nurse Practitioner Acute Care
PROC: 30233N1 Transfusion of Nonautologous Red Blood Cells into Peripheral Vein, Percutaneous Approach (ICD-10-PCS; principal; 2019-05-12)
DX: A41.51 Sepsis due to Escherichia coli [E. coli] (principal); D61.810 Antineoplastic chemotherapy induced pancytopenia; N39.0 Urinary tract infection, site not specified; E87.2 Acidosis; E44.1 Mild protein-calorie malnutrition; C83.30 Diffuse large B-cell lymphoma, unspecified site; Z92.21 Personal history of antineoplastic chemotherapy; Z90.710 Acquired absence of both cervix and uterus; Z90.12 Acquired absence of left breast and nipple; Z86.718 Personal history of other venous thrombosis and embolism; Z85.3 Personal history of malignant neoplasm of breast; Z79.01 Long term (current) use of anticoagulants; Z85.828 Personal history of other malignant neoplasm of skin; E89.0 Postprocedural hypothyroidism; K21.9 Gastro-esophageal reflux disease without esophagitis; Z80.3 Family history of malignant neoplasm of breast; Z79.899 Other long term (current) drug therapy; D63.8 Anemia in other chronic diseases classified elsewhere; B96.89 Other specified bacterial agents as the cause of diseases classified elsewhere; R73.9 Hyperglycemia, unspecified; T45.1X5A Adverse effect of antineoplastic and immunosuppressive drugs, initial encounter; Y92.009 Unspecified place in unspecified non-institutional (private) residence as the place of occurrence of the external cause
CPT/HCPCS: 36415; 70450-TC; 71045-TC; 80048-TC; 80061-TC; 80076-TC; 81000-TC; 82728-TC; 82784; 83540-TC; 83605-TC; 83615-TC; 83690-TC; 83735-TC; 84100-TC; 84155; 84165; 84439-TC; 84443-TC; 84484-TC; 85025-TC; 85730-TC; 86334; 86850-TC; 86921-TC; 87040-TC; 87081-TC; 87086-TC; 87186-TC; 97110-TC; 97116-TC; 97530-TC; G0378; J0696; J2405; J2543; J2765; J3370; J3475; J3490; J7030; J7050; J7060; P9016-BL; Q0163

== ENCOUNTER 2019-05-17 19:19 | Inpatient (IN) | payer MEDICARE, BC ==
[~2019-05-17] VITALS: Ht 157.5 cm; Wt 61.2 kg
[~2019-05-17 19:19] MED LIST: ACET-868 PO; CHOL100044 PO; DIPH25CA83 PO; FAMO20TA8 PO; LEVO137T2 PO; LEVO750T21 PO; MELA5TAB PO; PANT40TA2 PO; PEGF6SYR SQ; PRED20TA PO; [UNRECOGNIZED DRUG - REMARK]
--- NOTE | 2019-05-17 19:30 | NUR ---
PT BIB DAUGHTER VIA W/C C/O INCREASED GENERALIZED WEAKNESS, SOB X TODAY, RECENTLY D/C [facility] LAST TUESDAY FOR SEPSIS, CURRENLTY ON CHEMO FOR NONHODGKINS LYMPHOMA, LAST CHEMO . AOX4, AFEBRILE W/ RESP EVEN & UNLABORED, ASSISTED TO AUDREY, ON CONTINUOUS PULSE-OX W/ CARDIAC MONITORING. PENDING FURTHER NIKITA BREWSTER MD.
--- NOTE | 2019-05-17 19:55 | NUR ---
DR. ROSARIO AT BEDSIDE FOR EVAL.
[2019-05-17 20:00] VITALS: BP 147/72
[2019-05-17 20:28] LABS: BASOPHILS % (AUTO) 0.3 % (0.0-2.0); EOSINOPHILS % (AUTO) 1.1 % (0.0-6.0); HEMATOCRIT 22 % (33-45); HEMOGLOBIN 7.5 g/dL (11.5-14.8); LYMPHOCYTES # (AUTO) 0.1 /CMM (0.8-4.8); LYMPHOCYTES % (AUTO) 0.8 % (20.0-44.0); MEAN CORPUSCULAR HGB CONC 34 g/dl (31.0-36.0); MEAN CORPUSCULAR VOLUME 100 fL (82-100); MONOCYTES # (AUTO) 0.8 /CMM (0.1-1.30); MONOCYTES % (AUTO) 8.4 % (2.0-12.0); NEUTROPHILS # (AUTO) 8.7 /CMM (1.8-8.9); NEUTROPHILS % (AUTO) 89.4 % (43.0-81.0); RED BLOOD CELL COUNT(AUTO) 2.19 MIL/uL (4.0-5.2); WHITE BLOOD COUNT (AUTO) 9.8 K/uL (4.3-11.0)
[2019-05-17 20:38] LABS: PLATELET COUNT (AUTO) 11 /CMM (150-450)
[2019-05-17 20:39] LABS: CALCIUM, SERUM 8.7 mg/dL (8.5-10.1); CREATININE 0.9 mg/dL (0.6-1.3); POTASSIUM 3.9 mmol/L (3.5-5.1)
--- NOTE | 2019-05-17 20:49 | NUR ---
I&O CATH DONE, URINE SAMPLE COLLECTED AND SENT TO LAB.
[2019-05-17 20:57] LABS: ALBUMIN 3.2 g/dL (3.4-5.0); BILIRUBIN,DIRECT 0.2 mg/dL (0.0-0.2); BILIRUBIN,TOTAL 0.7 mg/dL (0.2-1.0); TOTAL PROTEIN, SERUM 5.2 g/dL (6.4-8.2)
[2019-05-17 21:07] LABS: APPEARANCE,URINE Clear (CLEAR); BILIRUBIN,URINE Negative (NEGATIVE); BLOOD, URINE Trace-intact Ery/uL (NEGATIVE); COLOR,URINE Yellow (YELLOW); KETONES,URINE Negative (NEGATIVE); LEUKOCYTE ESTERASE ,URINE Negative (NEGATIVE); NITRITE, URINE Negative (NEGATIVE); PH,URINE 7.5 (5.0-8.0); PROTEIN,URINE Negative (NEGATIVE); UGLUCOSE Negative (NEGATIVE); UROBILINOGEN,URINE 0.2 EU/dL (0.2)
[2019-05-17 21:15] LABS: BACTERIA,URINE Rare /HPF (None Seen); SQUAMOUS EPITHELIAL CELL,UR Few /HPF (None Seen); WBC,URINE NONE SEEN /HPF (0-3)
[2019-05-17 21:38] LABS: BAND % (MANUAL) 1 % (0.0-5.0); LYMPHOCYTES % (MANUAL) 3 % (16-48); MONOCYTES % (MANUAL) 7 % (0-11.0); NEUTROPHILS % (MANUAL) 89 (42-76)
--- NOTE | 2019-05-17 22:13 | NUR ---
SAMY VIGILP AT BEDSIDE TO [facility] [place].
--- NOTE | 2019-05-17 22:29 | NUR ---
REPORT CALLED TO M/S JUDY MCCLURE. WILL TRANSPORT PT TO ROOM 325-1
--- NOTE | 2019-05-17 22:40 | NUR ---
JUDY MS ADMISSION NOTES RECEIVED PATIENT FROM ER VIA [facility]. DX. THROMBOCYTOPENIA. PATIENT IS ALERT AND ORIENTED X4, VERBALLY [id number], ABLE TO MAKE NEEDS KNOWN. BREATHING EVEN AND UNLABORED. NO SOB NOTED. TOLERATING ROOM AIR. DENIES ANY PAIN OR DISCOMFORT. DENIES CP. PATIENT STATES SHE HAS NAUSEA BUT NOT NEEDED ANY MEDICATION AT THE MOMENT. IV ON RIGHT FOREARM INTACT AND PATENT. SKIN DRY AND WARM TO TOUCH. AFEBRILE. SKIN ASSESSMENT DONE WITH PICTURES TAKEN AND PLACED IN CHART. BELONGINGS ACCOUNTED FOR. ORIENTED TO THE USE OF UNIT AMENITIES. INSTRUCTED ON THE USE OF CALL LIGHT. ALL OTHER NEEDS ATTENDED TO. SAFETY MEASURES IN PLACE. CALL LIGHT WITHIN REACH. WILL CONTINUE TO MONITOR. Addendum: 05/18/19 at 0038 by KAMI WADDELL RN NO SIGNS OF BLEEDING.
[2019-05-17] MEDS ORDERED: MAGNESIUM HYDROXIDE 30 ML UDC PO PRN (23:30)
[2019-05-17] MEDS ORDERED: MAG HYDROX/AL HYDROX/SIMETH 30 ML UDC PO PRN (23:30)
[2019-05-17] MEDS ORDERED: ACETAMINOPHEN 325 MG TABLET PO PRN (23:30)
[2019-05-17] MEDS ORDERED: Z GUARD REMEDY 2 OZ OINT TP PRN (23:30)
[2019-05-18] VITALS (8 sets, daily range): BP systolic 130–149; BP diastolic 61–76
[2019-05-18] MEDS: IV NS 0.9% 1,000 ML IV PRN ×2 (00:16→16:02)
[2019-05-18 06:44] LABS: CALCIUM, SERUM 8.5 mg/dL (8.5-10.1); CREATININE 0.8 mg/dL (0.6-1.3); PHOSPHORUS 3.5 mg/dL (2.5-4.9); POTASSIUM 4.1 mmol/L (3.5-5.1)
--- NOTE | 2019-05-18 06:44 | NUR ---
RN MS NOTES PATIENT REQUESTED FOR A SPECIFIC BREAKFAST THIS AM. VERIFIED WITH MITRA FROM [facility] THAT THEY RECEIVED PATIENT'S ORDER.
--- NOTE | 2019-05-18 06:45 | NUR ---
RN MS CLOSING NOTES PATIENT AWAKE, AND RESTING IN BED. NO ACUTE CHANGES OVERNIGHT. BREATHING EVEN AND UNLABORED. NO SOB NOTED. ON ROOM AIR. IV ON RIGHT FOREARM INTACT AND PATENT WITH IVF INFUSING. DENIES PAIN OR DISCOMFORT. DENIES CP, DENIES N/V. NO BLEEDING NOTED. KEPT CLEAN DRY AND COMFORTABLE. ALL OTHER NEEDS ATTENDED TO. SAFETY MEASURES IN PLACE. CALL LIGHT WITHIN REACH. WILL ENDORSE TO ONCOMING NURSE FOR OLVIN.
[2019-05-18] MEDS: LEVOTHYROXINE SODIUM 137 MCG TABLET PO SCH (06:56)
[2019-05-18] MEDS: PANTOPRAZOLE 40 MG TABLET.DR PO SCH (06:56)
[2019-05-18] MEDS: ACETAMINOPHEN 325 MG TABLET PO PRN (06:56)
[2019-05-18 06:59] LABS: BASOPHILS % (AUTO) 0.1 % (0.0-2.0); EOSINOPHILS % (AUTO) 1.2 % (0.0-6.0); HEMATOCRIT 21 % (33-45); HEMOGLOBIN 7.3 g/dL (11.5-14.8); LYMPHOCYTES # (AUTO) 0.1 /CMM (0.8-4.8); LYMPHOCYTES % (AUTO) 1.8 % (20.0-44.0); MEAN CORPUSCULAR HGB CONC 35 g/dl (31.0-36.0); MEAN CORPUSCULAR VOLUME 99 fL (82-100); MONOCYTES # (AUTO) 0.5 /CMM (0.1-1.30); MONOCYTES % (AUTO) 7.2 % (2.0-12.0); NEUTROPHILS # (AUTO) 6.8 /CMM (1.8-8.9); NEUTROPHILS % (AUTO) 89.7 % (43.0-81.0); RED BLOOD CELL COUNT(AUTO) 2.12 MIL/uL (4.0-5.2); WHITE BLOOD COUNT (AUTO) 7.6 K/uL (4.3-11.0)
[2019-05-18 07:09] LABS: PLATELET COUNT (AUTO) 11 /CMM (150-450)
--- NOTE | 2019-05-18 07:10 | NUR ---
RN MS NOTES RECEIVED CRITICAL RESULT FOR PLATELET 11. NO CHANGE FROM YESTERDAY. ENDORSED TO JUDY NIELSON.
--- NOTE | 2019-05-18 07:15 | NUR ---
MS RN OPENING NOTES RECEIVED PT IN BED, AWAKE, A/O X4. TOLERATING RA, WITH NO ACUTE RESPIRATORY DISTRESS NOTED. PT DENIES ANY PAIN OR DISCOMFORT AT THIS TIME. PT ALSO DENIES ANY CONCERNS OR QUESTIONS AT THE MOMENT. IVF NS AT 75 ML/HR TO RFAG20, INTACT AND FLUID INFUSING WELL. PT KEPT COMFORTABLE. PT'S BED IN LOWEST, LOCKED POSITION X3. CALL LIGHT KEPT WITHIN REACH. WILL CONTINUE PLAN OF CARE.
[2019-05-18] MEDS ORDERED: PANTOPRAZOLE 40 MG TABLET.DR PO SCH (07:30)
[2019-05-18] MEDS: predniSONE 20 MG TABLET PO SCH (08:18)
[2019-05-18] MEDS: FAMOTIDINE (20 MG) 20 MG TABLET PO SCH (08:18)
[2019-05-18] MEDS: CHOLECALCIFEROL 1,000 UNIT TABLET (VIT D3) PO SCH (08:18)
[2019-05-18] MEDS: ENOXAPARIN SODIUM 40 MG/0.4 ML DISP.SYRIN SQ SCH (08:21)
--- NOTE | 2019-05-18 08:45 | NUR ---
MS RN NOTES BLOOD BANK TECH CALLED REGARDING STANDING ORDER FOR PLATELETS TO REPLACE IF <20. BLOOD BANK TECH STATED IT IT'S ROUTINE PRODUCT WONT BE AVAILABLE UNTIL LATE IN THE AFTERNOON. CHEF UNDER/NN/HOSPITALIST MADE AWARE. AWAITING FOR RESPONSE.
[2019-05-18] MEDS: LEVOFLOXACIN (500MG) 500 MG TABLET PO SCH (09:00)
[2019-05-18] MEDS ORDERED: LEVOFLOXACIN (750 MG) 750 MG TABLET PO SCH (09:00)
[2019-05-18 09:50] LABS: BAND % (MANUAL) 6 % (0.0-5.0); LYMPHOCYTES % (MANUAL) 1 % (16-48); MONOCYTES % (MANUAL) 7 % (0-11.0); NEUTROPHILS % (MANUAL) 86 (42-76)
--- NOTE | 2019-05-18 09:50 | NUR ---
MS RN NOTES HOSPITALIST/CARNALLITE PLANT OPERATOR/NN RESPONDED OKAY FOR PLATELETS ROUTINE IN THE LATE AFTERNOON. PT NOT BLEEDING; WILL INFORM BLOOD BANK. ALSO, CARNALLITE PLANT OPERATOR/NN AWARE ORDER OF LEVAQUIN 750 WAS GIVEN THIS MORNING BEFORE HE CHANGED IT TO 500MG. CARNALLITE PLANT OPERATOR/NN AWARE LEVAQUIN 500MG NOT GIVEN. NO OTHER ORDERS NOTED. CARNALLITE PLANT OPERATOR/NN IS OKAY AND AWARE.
--- NOTE | 2019-05-18 10:31 | NUR ---
MS RN NOTES TOW MATE/NN BACK IN THE UNIT, AWARE OF BLOOD BANK/PLATELET SITUATION. PLATELET RESULTED 11 TODAY. PT NOT CURRENTLY BLEEDING. TOW MATE/NN OKAY TO TRANSFUSE TOMORROW. WILL CONTINUE TO MONITOR PT.
--- NOTE | 2019-05-18 18:29 | NUR ---
Readmitted in two days after discharged due to low platelet count and weakness. Has hx of Non-Hodgkin's lymphoma on chemotherapy, her oncologist is Dr. Clayton Ashford [phone]. She lives locally with her daughter Christina and friend Nan. She is ambulatory and independent with adl's. Has adequate DME is needed - walker, commode, shower chair and grab bars. She is currently on service with [employer] [phone]. She plan to return home, family will provide ride. Addendum: 05/18/19 at 1831 by CRISTEL BENTON RN Amended: Links added.
--- NOTE | 2019-05-18 18:31 | NUR ---
MS RN CLOSING NOTES PT IN BED, AWAKE, A/O X4. TOLERATING RA, WITH NO ACUTE RESPIRATORY DISTRESS NOTED. PT DENIES ANY PAIN OR DISCOMFORT AT THIS TIME. IVF NS AT 75 ML/HR TO RFAG20, INTACT AND FLUID INFUSING WELL.ALL NEEDS AND CARE ATTENDED. PT KEPT COMFORTABLE. PT'S BED IN LOWEST, LOCKED POSITION X3. CALL LIGHT KEPT WITHIN REACH. WILL ENDORSE TO INCOMING NIGHT NURSE FOR OLVIN.
--- NOTE | 2019-05-18 19:00 | NUR ---
RN medsurg opening notes Received Pt from morning nurse. Pt is alert and oriented X4. respiration is normal. No SOB. No nausea or vomiting. Pt denies any pain at this time. IV sites RFA#20 is clean, intact, patent and infusing well NS @ 75 ml/hr. Instructed to call. Bed at low position, brakes locked, side rails upX2 and call light is within reach. Will continue to monitor.
[2019-05-18] MEDS: diphenhydrAMINE HCL 25 MG CAPSULE PO SCH (21:08)
--- NOTE | 2019-05-18 21:55 | NUR ---
Readmitted in two days after discharged due to low platelet count and weakness. Has hx of Non-Hodgkin's lymphoma on chemotherapy at [facility] in [place], her oncologist is Dr. Clayton Ashford [phone] in [place]. Met with patient, states she lives locally with her daughter Christina and friend Nan. She was ambulatory and independent with adl's prior to admission. Has adequate DME - walker, commode, shower chair and grab bars. She is currently on service with [employer] [phone]. States she is planning to go to [facility] - [place] in [place] and eventually transition to the assisted living side in [place] after rehab. Addendum: 05/18/19 at 2158 by CRISTEL BENTON RN Amended: Links added.
[2019-05-18] MEDS ORDERED: Medication Not On Formulary EA (Melatonin 10 MG) PO SCH (22:00)
--- NOTE | 2019-05-18 23:22 | NUR ---
[facility] is transfusing as ordered at 2322. Consent signed by Pt. Pt verbalize understanding. BP 149/76, PULSE 73, TEMP 98.5, RESP 18, O2 SAT IS 99% IN ROOM AIR, and NO PAIN. Will continue to monitor
[2019-05-19] VITALS (12 sets, daily range): BP systolic 68–146; BP diastolic 57–89
--- NOTE | 2019-05-19 02:15 | NUR ---
RN panchito notes Went to Lab to pick pulling machine operator second bag of Platelet. Spoke with Rebecca. Rebecca informed and showed that platelet has a lot of bubble inside. Saw a second bag of platelet has a lot of bubble inside. Rebecca said She has to wait for Ludivina to approve for Platelet and will give the second bag of platelet in the morning. Informed and notify Charge nurse JUDY Longoria about platelet. Will wait the second bag of platelet in the morning. Pt's VS is stable. Informed Pt about the second bag will be administer in the morning. Pt verbalized understanding. Will continue to monitor.
--- NOTE | 2019-05-19 02:20 | NUR ---
RN medsurg notes Spoke and informed Duran Fernandez that we will wait for the second bag of platelet in the morning. Will continue to monitor.
--- NOTE | 2019-05-19 02:20 | NUR ---
RN medsurg notes First bag of platelet is finished transfusing. VS is stable. No adverse reaction. Pt tolerated well. Will wait the second bag in the AM. Will continue to monitor
--- NOTE | 2019-05-19 06:47 | NUR ---
RN medsurg closing notes Pt is resting in bed comfortably. Respiration is normal. No SOB. No S/S of distress noted. IV sites is clean, intact, patent ad infusing NS @ 75ml/hr. Routine meds given as ordered. 1 bag of platelet was given. The second bag will be in the morning. VS is stable. Kept Pt clean, warm and comfortable. All needs met. Safety precautions is maintained. Instructed to call. Bed at low position, brakes locked, side rails upX2 and call light is within reach. Will endorse to morning nurse for OLVIN.
[2019-05-19] MEDS: FAMOTIDINE (20 MG) 20 MG TABLET PO SCH (08:30)
[2019-05-19] MEDS: LEVOTHYROXINE SODIUM 137 MCG TABLET PO SCH (08:30)
[2019-05-19] MEDS: LEVOFLOXACIN (500MG) 500 MG TABLET PO SCH (08:30)
[2019-05-19] MEDS: predniSONE 20 MG TABLET PO SCH (08:31)
[2019-05-19] MEDS: PANTOPRAZOLE 40 MG TABLET.DR PO SCH (08:31)
[2019-05-19] MEDS: CHOLECALCIFEROL 1,000 UNIT TABLET (VIT D3) PO SCH (08:31)
[2019-05-19] MEDS: ENOXAPARIN SODIUM 40 MG/0.4 ML DISP.SYRIN SQ SCH (08:32)
--- NOTE | 2019-05-19 09:00 | NUR ---
RN NOTES RECEIVED PHONE CALL FROM ARACELI (FROM LABORATORY) PER THE LATER, THE PLATELET FROM LAST NIGHT WHICH WAS NOT TRANSFUSED WAS NOT GOOD TO BE TRANSFUSED BECAUSE IT WAS DESTROYED DUE TO THE INCUBATOR WAS NOT WORKING AND THAT THEY HAVE TO ORDER ANOTHER BAG FROM [facility] AND WILL CALL AND LET ME KNOW WHEN ITS AVAILABLE SO I CAN PICK IT UP RIGHT AWAY Addendum: 05/19/19 at 1519 by ALEKSANDRA GARCIA RN INFORMED PATIENT ABOUT THIS
--- NOTE | 2019-05-19 09:08 | NUR ---
RN NOTES RECEIVED PATIENT IN BED, A/A/OX4, ON ROOM AIR, BREATHING UNLABORED, SATURATION LEVEL FINE. NO COMPLAINTS OF PAIN OF ANY KIND. IV LINE NOTED ON THE R FOREARM G 20: IN PLACE AND INTACT, DRESSING IN PLACE AND INTACT. NO SIGN OF INFECTION/ INFILTRATION NOTED. WITH ONGOING IVF ON NS AT 75CC/HR. PATIENT ENCOURAGE TO VERBALIZE FEELINGS AND CONCERNS, SAFETY MEASURES OBSERVED AND MAINTAINED, CALL LIGHT PLACED WITHIN REACH, WILL CONTINUE TO MONITOR AND ANTICIPATE NEEDS
--- NOTE | 2019-05-19 14:30 | NUR ---
RN NOTES CALLED ARACELI ( FROM THE LAB) ASKED FOR UPDATE REGARDING PLATELET, PER THE LATER STILL NOT AVAILABLE AND THAT THEY ARE STILL WAITING FOR IT TO AVAILABLE FROM [facility]. ALSO, SHE VERBALIZE THAT SHE'S GOIGN TO BE OUT SOON AND ANOTHER MT WILL BE RELIEVING AND SHE'S GONNA MAKE SURE TO ENDORSED THE SITUATION. PATIENT UPDATED ON THE SAID CONVERSATION
[2019-05-19] MEDS: ONDANSETRON HCL/PF 4 MG/2 ML VIAL IVP PRN (16:47)
--- NOTE | 2019-05-19 18:30 | NUR ---
RN NOTES PATIENT S/P PLATELET TRANSFUSION, NO ADVERSE EFFECT NOTED. NO REPORTED DISCOMFORT. PATIENT NOT ON ANY FORM OF DISTRESS.
--- NOTE | 2019-05-19 19:07 | NUR ---
RN NOTES ENDORSED FOR CONTINUITY OF CARE. NOT ON ANY FORM OF DISTRESS. ALL NURSING NEEDS ATTENDED AND MET. SAFETY MEASURES IN PLACE AT ALL TIMES. CALL LIGHT PLACED WITHIN REACH
--- NOTE | 2019-05-19 19:10 | NUR ---
CHANGE OF SHIFT REPORT Patient in bed, awake A/O x4. Post Platelet transfusion today per report, denies pain, on RA tolerating well. Instruction to use call light for assistance, verbalized understanding.
[2019-05-19] MEDS: IV NS 0.9% 1,000 ML IV PRN (20:13)
[2019-05-19] MEDS: diphenhydrAMINE HCL 25 MG CAPSULE PO SCH (21:06)
[2019-05-20] VITALS (7 sets, daily range): BP systolic 100–134; BP diastolic 56–73
--- NOTE | 2019-05-20 06:22 | NUR ---
END OF SHIFT REPORT Patient in bed, stable oxygen saturation on RA. Up to bedside commode with FWW, standby assist, denies pain. IVF infusing maintained at 75 ml/hr. No c/o nausea no vomiting. Slept well, hourly rounds, fall precautions maintained. Plan dc to SNF, CM following.
[2019-05-20 06:30] LABS: BASOPHILS % (AUTO) 0.2 % (0.0-2.0); EOSINOPHILS % (AUTO) 2.1 % (0.0-6.0); LYMPHOCYTES # (AUTO) 0.1 /CMM (0.8-4.8); LYMPHOCYTES % (AUTO) 3.4 % (20.0-44.0); MEAN CORPUSCULAR HGB CONC 34 g/dl (31.0-36.0); MEAN CORPUSCULAR VOLUME 100 fL (82-100); MONOCYTES # (AUTO) 0.4 /CMM (0.1-1.30); MONOCYTES % (AUTO) 9.5 % (2.0-12.0); NEUTROPHILS # (AUTO) 3.3 /CMM (1.8-8.9); NEUTROPHILS % (AUTO) 84.8 % (43.0-81.0); PLATELET COUNT (AUTO) 56 /CMM (150-450); WHITE BLOOD COUNT (AUTO) 3.9 K/uL (4.3-11.0)
[2019-05-20 06:32] LABS: CALCIUM, SERUM 8.5 mg/dL (8.5-10.1); CREATININE 0.7 mg/dL (0.6-1.3)
[2019-05-20 06:36] LABS: RED BLOOD CELL COUNT(AUTO) 1.98 MIL/uL (4.0-5.2)
[2019-05-20 06:37] LABS: HEMATOCRIT 20 % (33-45); HEMOGLOBIN 6.8 g/dL (11.5-14.8)
--- NOTE | 2019-05-20 06:58 | NUR ---
0638: Called from lab critical result Hemoglobin 6.8 0640: Notified Kati Cabrera NP 0648: Ordered received 1 unit PRBC now, no PLT. 0650: Informed blood bank, spoke with Ros. Will give 1 unit PRBC when available, will endorse to oncoming RN.
--- NOTE | 2019-05-20 07:00 | NUR ---
MS RN NOTES PATIENT IN BED ALERT ORIENTED X 4. NO ACUTE DISTRESS NOTED. BREATHING UNLABORED. NO SOB NOTED. IV ACCESS PATENT AND INTACT, NO REDNESS OR SWELLING NOTED. SAFETY MEASURES IN PLACE. CALL LIGHT WITHIN REACH. WILL CONTINUE TO MONITOR ACCORDINGLY.
[2019-05-20] MEDS: LEVOTHYROXINE SODIUM 137 MCG TABLET PO SCH (07:41)
[2019-05-20] MEDS: PANTOPRAZOLE 40 MG TABLET.DR PO SCH (07:42)
[2019-05-20 08:45] LABS: BAND % (MANUAL) 2 % (0.0-5.0); LYMPHOCYTES % (MANUAL) 8 % (16-48); NEUTROPHILS % (MANUAL) 83 (42-76)
[2019-05-20 08:46] LABS: MONOCYTES % (MANUAL) 7 % (0-11.0)
--- NOTE | 2019-05-20 08:51 | NUR ---
MS RN NOTES STARTED BLOOD TRANSFUSION, PATIENT WITH STABLE VITAL SIGNS, NO ACUTE DISTRESS NOTED. BREATHING UNLABORED. WILL CONTINUE TO MONITOR PATIENT.
--- NOTE | 2019-05-20 09:06 | NUR ---
MS RN NOTES WITH ON GOING BLOOD TRANSFUSION, PATIENT WITH STABLE VITAL SIGNS, NO ACUTE DISTRESS NOTED. BREATHING UNLABORED. NO SOB NOTED. NO ADVERSE REACTION OF BLOOD TRASNSFUSION NOTED. WILL CONTINUE TO MONITOR PATIENT.
[2019-05-20] MEDS: FAMOTIDINE (20 MG) 20 MG TABLET PO SCH (09:07)
[2019-05-20] MEDS: CHOLECALCIFEROL 1,000 UNIT TABLET (VIT D3) PO SCH (09:07)
[2019-05-20] MEDS: LEVOFLOXACIN (500MG) 500 MG TABLET PO SCH (09:07)
[2019-05-20] MEDS: predniSONE 20 MG TABLET PO SCH (09:07)
--- NOTE | 2019-05-20 09:51 | NUR ---
MS RN NOTES BLOOD TRANSFUSION ON GOING, PATIENT WITH STABLE VITAL SIGNS, NO ACUTE DISTRESS NOTED. BREATHING UNLABORED. NO SOB NOTED. NO ADVERSE REACTION OF BLOOD TRANSFUSION NOTED. WILL CONTINUE TO MONITOR PATIENT.
--- NOTE | 2019-05-20 12:19 | NUR ---
MS RN NOTES BLOOD TRANSFUSION ENDED, PATIENT WITH STABLE VITAL SIGNS, NO ACUTE DISTRESS NOTED. BREATHING UNLABORED. NO SOB NOTED. NO ADVERSE REACTION OF BLOOD TRANSFUSION NOTED. WILL CONTINUE TO MONITOR PATIENT.
--- NOTE | 2019-05-20 12:52 | NUR ---
MS RN NOTES RECEIVED NEW ORDERS FROM [facility] TO CHECK HEMOGLOBIN AND HEMATOCRIT LEVEL 1 HOUR AFTER BLOOD TRANSFUSION ENDED. NOTED AND CARRIED OUT.
[2019-05-20 14:08] LABS: HEMOGLOBIN 9.6 g/dL (11.5-14.8)
[2019-05-20] MEDS: ACETAMINOPHEN 325 MG TABLET PO PRN (14:46)
[2019-05-20] MEDS: IV NS 0.9% 1,000 ML IV PRN (14:50)
[2019-05-20] MEDS: APIXABAN 5 MG TABLET PO SCH (16:36)
--- NOTE | 2019-05-20 16:36 | NUR ---
MS RN NOTES CLARIFIED WITH DR RUDY DOOLEY REGARDING ELIQUIS, SAID ITS OK TO GIVE ,MEDICATION.
--- NOTE | 2019-05-20 18:41 | NUR ---
MS RN NOTES PATIENT IN BED ALERT ORIENTED X 4. NO ACUTE DISTRESS NOTED. BREATHING UNLABORED. NO SOB NOTED. IV ACCESS PATENT AND INTACT, NO REDNESS OR SWELLING NOTED. DUE MEDICATIONS GIVEN, NO ASE NOTED. NEEDS ATTENDED AND ANTICIPATED. KEPT CLEAN DRY AND COMFORTABLE. SAFETY MEASURES IN PLACE. CALL LIGHT WITHIN REACH. WILL ENDORSE TO NIGHT NURSE FOR CONTINUITY OF CARE.
--- NOTE | 2019-05-20 19:15 | NUR ---
RN medsur opening notes Received Pt from morning nurse. Pt is alert and oriented X4. Pt is resting in bed talking on her cell phone. Respiration is normal. No SOB. No nausea or vomiting. Pt denies any pain or discomfort at this time. IV sites RFA#20 is clean, intact, patent and SL. Pt refused to have IV fluid at this time. Pt stated "I'm okay." Educate and informed benefit of receiving IV fluid. Pt verbalized understanding. Pt drinks fluid. POC was discussed with Pt. Pt verbalized understanding. Instructed to call. Safety precautions is maintained. Bed at low position, brakes locked, side rails upX2 and call light is within reach. Will continue to monitor.
[2019-05-20] MEDS: diphenhydrAMINE HCL 25 MG CAPSULE PO SCH (21:28)
--- NOTE | 2019-05-20 23:30 | NUR ---
RN medsurg notes Pt is sleeping in bed comfortably. No S/S of distress noted. Call light is within reach. Will continue to monitor.
--- NOTE | 2019-05-21 03:20 | NUR ---
RN medsurg closing notes Report given to JUDY Parikh. Pt is resting in bed comfortably. Pt is alert and oriented x4. Respiration is normal. No SOB. No S/S of distress noted. IV sites is clean, patent and intact. Routine meds given as ordered. Kept Pt warm, dry and comfortable. All needs met and attended. VS is stable. Instructed to call. Safety precautions is maintained all the time. Bed at low position, brakes locked, side rails upX2 and call light is within reach. Will endorse to JUDY Parikh for OLVIN.
--- NOTE | 2019-05-21 03:21 | NUR ---
MS/RN NOTES RECEIVED REPORT AND PATIENT FROM JUDY PRO. PT. IS LYING IN BED RESTING. BREATHING EVEN AND UNLABORED ON ROOM AIR. NO SOB, RESPIRATORY DISTRESS OR S/S OF PAIN NOTED AT THIS TIME. SAFETY PRECAUTIONS IMPLEMENTED AND IN PLACE. BED LOCKED AND IN LOWEST POSITION, SIDE RAILS UP X2, CALL LIGHT WITHIN REACH, WILL CONTINUE TO MONITOR.
[2019-05-21] MEDS: ACETAMINOPHEN 325 MG TABLET PO PRN ×2 (06:45→12:56)
--- NOTE | 2019-05-21 06:50 | NUR ---
MS/RN NOTES PT. IS SITTING UP IN CHAIR. BREATHING EVEN AND UNLABORED ON ROOM AIR. NO SOB, RESPIRATORY DISTRESS OR S/S OF PAIN NOTED AT THIS TIME. PT. WITH RIGHT FOREARM 20 GAUGE IV SALINE LOCK PRESENT, PATENT AND INTACT. PT. REFUSING IV FLUIDS STATING SHE IS DRINKING ENOUGH WATER. SAFETY PRECAUTIONS IMPLEMENTED AND IN PLACE. CALL LIGHT WITHIN REACH, WILL ENDORSE TO DAYSHIFT NURSE FOR CONTINUITY OF CARE.
[2019-05-21] MEDS: PANTOPRAZOLE 40 MG TABLET.DR PO SCH (07:27)
[2019-05-21] MEDS: LEVOTHYROXINE SODIUM 137 MCG TABLET PO SCH (07:28)
[2019-05-21 08:00] VITALS: BP 126/69
[2019-05-21] MEDS: predniSONE 20 MG TABLET PO SCH (08:20)
[2019-05-21] MEDS: CHOLECALCIFEROL 1,000 UNIT TABLET (VIT D3) PO SCH (08:20)
[2019-05-21] MEDS: LEVOFLOXACIN (500MG) 500 MG TABLET PO SCH (08:20)
[2019-05-21] MEDS: FAMOTIDINE (20 MG) 20 MG TABLET PO SCH (08:20)
[2019-05-21] MEDS: APIXABAN 5 MG TABLET PO SCH (08:22)
[2019-05-21] MEDS: ONDANSETRON HCL/PF 4 MG/2 ML VIAL IVP PRN (12:04)
--- NOTE | 2019-05-21 12:29 | NUR ---
MS RN NOTES SEEN AND EVALUATED BY DR RUDY DOOLEY WITH NEW ORDERS MADE, NOTED AND CARRIED OUT.
--- NOTE | 2019-05-21 15:05 | NUR ---
MS RN NOTES PATIENT DISCHARGE TO [facility] WITH STABLE VITAL SIGNS, REPORT GIVEN TO CHITO KIM. NO ACUTE DISTRESS NOTED ON PATIENT. BREATHING UNLABORED. NO SOB NOTED. DISCHARGE INSTRUCTION GIVEN TO THE PATIENT INCLUDING NEW PRESCRIPTION, VERBALIZED UNDERSTANDING. IV ACCESS REMOVED, NO REDNESS, NO SWELLING, NO BLEEDING NOTED. ALL BELONGINGS ACCOUNTED FOR. PICKED UP VIA AMBULANCE IN A GURNEY ACCOMPANIED BY 1 EMT PERSONNEL IN STABLE CONDITION.
== END 2019-05-21 15:10 | DRG 641 ==
LOC: ER 19:19 → MED 22:26
PROVIDERS: ADMIT Registered Nurse; ATTEND Nurse Practitioner Acute Care
PROC: 30233R1 Transfusion of Nonautologous Platelets into Peripheral Vein, Percutaneous Approach (ICD-10-PCS; 2019-05-18)
PROC: 30233P1 Transfusion of Nonautologous Frozen Red Cells into Peripheral Vein, Percutaneous Approach (ICD-10-PCS; principal; 2019-05-20)
DX: R62.7 Adult failure to thrive (principal); C85.90 Non-Hodgkin lymphoma, unspecified, unspecified site; K21.9 Gastro-esophageal reflux disease without esophagitis; E89.0 Postprocedural hypothyroidism; R53.1 Weakness; Z86.718 Personal history of other venous thrombosis and embolism; Z79.01 Long term (current) use of anticoagulants; I89.0 Lymphedema, not elsewhere classified; T45.1X5A Adverse effect of antineoplastic and immunosuppressive drugs, initial encounter; D69.59 Other secondary thrombocytopenia; D64.9 Anemia, unspecified
CPT/HCPCS: 36415; 71045-TC; 80048-TC; 80076-TC; 81000-TC; 83605-TC; 83690-TC; 83735-TC; 84100-TC; 85025-TC; 85027-TC; 86850-TC; 86921-TC; 87081-TC; 97116-TC; 97530-TC; G0378; J1650; J2405; J3490; J7030; J7050; P9016-BL; P9034-BL; Q0163

== ENCOUNTER 2019-07-26 19:36 | Inpatient (IN) | payer MEDICARE, BC ==
[~2019-07-26] VITALS: Ht 160 cm; Wt 69.9 kg
[~2019-07-26 19:36] MED LIST changes: +APIX2.5T PO; +CEFE2FRO IV; -FAMO20TA8 PO; +LEVO500T75 PO; -LEVO750T21 PO; +LIDO30AD10 TP; +MULT1TAB73 PO; +ONDA4TAB5 SL; -PEGF6SYR SQ; +PROT946L PO
--- NOTE | 2019-07-26 20:14 | NUR ---
PT SUNITHA BEOX4. FROM [facility] C/C INCREASED FATIGUE SINCE CHEMOTHERAPY. PT REPORTS FEELING NAUSEOUS AND SICK. MD AT BEDSIDE FOR EVAL. PLACED ON MONITOR AND PULSE OX.
[2019-07-26] MEDS ORDERED: IV NS 0.9% 1,000 ML BAG IV ONE (20:30)
[2019-07-26 20:39] LABS: BASOPHILS % (AUTO) 0.9 % (0.0-2.0); EOSINOPHILS % (AUTO) 3.8 % (0.0-6.0); HEMATOCRIT 23 % (33-45); HEMOGLOBIN 7.9 g/dL (11.5-14.8); LYMPHOCYTES # (AUTO) 0.2 /CMM (0.8-4.8); LYMPHOCYTES % (AUTO) 7.3 % (20.0-44.0); MEAN CORPUSCULAR HGB CONC 34 g/dl (31.0-36.0); MEAN CORPUSCULAR VOLUME 101 fL (82-100); MONOCYTES # (AUTO) 0.4 /CMM (0.1-1.30); MONOCYTES % (AUTO) 13.7 % (2.0-12.0); NEUTROPHILS % (AUTO) 74.3 % (43.0-81.0); PLATELET COUNT (AUTO) 71 /CMM (150-450); RED BLOOD CELL COUNT(AUTO) 2.28 MIL/uL (4.0-5.2); WHITE BLOOD COUNT (AUTO) 2.7 K/uL (4.3-11.0)
--- NOTE | 2019-07-26 20:47 | NUR ---
MACHINE SPRAYER AT BEDSIDE FOR BLOOD COLLECTION
--- NOTE | 2019-07-26 20:48 | NUR ---
XRAY AT BEDSIDE
[2019-07-26 21:03] LABS: CALCIUM, SERUM 8.8 mg/dL (8.5-10.1); CARBON DIOXIDE 26 mmol/L (21-32); CHLORIDE 105 mmol/L (98-107); CREATININE 1.2 mg/dL (0.6-1.3); GLUCOSE 108 mg/dL (74-106); POTASSIUM 3.4 mmol/L (3.5-5.1); SODIUM SERUM 139 mmol/L (136-145); UREA NITROGEN, BLOOD 17 mg/dL (7-18)
[2019-07-26 21:08] LABS: ALANINE AMINOTRANSFERASE 25 U/L (12-78); ALBUMIN 2.8 g/dL (3.4-5.0); ALKALINE PHOSPHATASE 96 U/L (46-116); ASPARTATE AMINOTRANSFERASE 17 U/L (15-37); BILIRUBIN,DIRECT 0.1 mg/dL (0.0-0.2); BILIRUBIN,TOTAL 0.3 mg/dL (0.2-1.0); TOTAL PROTEIN, SERUM 5.6 g/dL (6.4-8.2)
--- NOTE | 2019-07-26 21:21 | NUR ---
DR LANG PAGED FOR PANEL
[2019-07-26] MEDS ORDERED: VANCOMYCIN 1 GM in IV D5W 250 ML IV ONE (21:30)
[2019-07-26] MEDS ORDERED: CEFEPIME 1 GM in IV D5W 50 ML IV ONE (21:30)
--- NOTE | 2019-07-26 21:30 | NUR ---
CALLED SUP FOR TELE BED
[2019-07-26] MEDS ORDERED: CEFEPIME 1 GM VIAL ONE (21:36)
[2019-07-26] MEDS ORDERED: VANCOMYCIN 1 GM VIAL ONE (21:36)
--- NOTE | 2019-07-26 21:36 | NUR ---
BED 116-2
[2019-07-26] MEDS ORDERED: WATER FOR INJECTION,STERILE 10 ML ONE (21:43)
[2019-07-26 22:03] LABS: EOSINOPHILS % (MANUAL) 3 % (0-4); LYMPHOCYTES % (MANUAL) 9 % (16-48); MONOCYTES % (MANUAL) 7 % (0-11.0); NEUTROPHILS % (MANUAL) 81 (42-76)
[2019-07-26] MEDS ORDERED: ZOLPIDEM TARTRATE 5 MG TABLET PO PRN (22:30)
[2019-07-26] MEDS ORDERED: MAG HYDROX/AL HYDROX/SIMETH 30 ML UDC PO PRN (22:30)
[2019-07-26] MEDS ORDERED: MAGNESIUM HYDROXIDE 30 ML UDC PO PRN (22:30)
--- NOTE | 2019-07-26 23:04 | NUR ---
REPORT GIVEN TO LANIE KIM FOR OLVIN.
--- NOTE | 2019-07-26 23:19 | NUR ---
EVALUATION ADVISOR NOTES RECEIVED PT FROM ER NURSE. ON NASAL CANULA 2LPM, PT A/O X 4 COMPLAINING OF NAUSEA. IV ACCESS ON ON R WRIST G20, PATENT AND INTACT. REFUSED BELONGING LIST CHECK. SKIN ASSESSMENT DONE. PT PLACED ON FACE MASK 5LPM, SATURATING 100%
[2019-07-26] MEDS: ACETAMINOPHEN 325 MG TABLET PO PRN (23:31)
[2019-07-26] MEDS: ONDANSETRON HCL/PF 4 MG/2 ML VIAL IVP PRN (23:31)
[2019-07-26 23:46] LABS: BACTERIA,URINE Few /HPF (None Seen); SQUAMOUS EPITHELIAL CELL,UR Moderate /HPF (None Seen); WBC,URINE 21-50 /HPF (0-3)
[2019-07-26] MEDS: IV NS 0.9% 1,000 ML IV PRN (23:51)
[2019-07-26 23:52] VITALS: BP 122/76
[2019-07-26 23:57] LABS: APPEARANCE,URINE CLEAR (CLEAR); BILIRUBIN,URINE NEGATIVE (NEGATIVE); BLOOD, URINE NEGATIVE Ery/uL (NEGATIVE); COLOR,URINE YELLOW (YELLOW); KETONES,URINE NEGATIVE (NEGATIVE); PROTEIN,URINE NEGATIVE (NEGATIVE); UGLUCOSE NEGATIVE (NEGATIVE)
[2019-07-26 23:58] LABS: LEUKOCYTE ESTERASE ,URINE SMALL (NEGATIVE); NITRITE, URINE NEGATIVE (NEGATIVE); UROBILINOGEN,URINE 0.2 EU/dL (0.2)
[2019-07-27] MEDS: ACETAMINOPHEN 650 MG/SUPP.RECT RC PRN (00:55)
[2019-07-27] MEDS ORDERED: ALBUTEROL FS 2.5 MG/3 ML VIAL.NEB NEB PRN (01:00)
--- NOTE | 2019-07-27 01:00 | NUR ---
INVOICING SPECIALIST NOTES PT REFUSED BELONGING CHECKLIST. WITNESS BY STEAM BRUSH OPERATOR .
[2019-07-27 04:00] VITALS: BP 138/78
[2019-07-27 07:13] LABS: CALCIUM, SERUM 8.3 mg/dL (8.5-10.1); CREATININE 0.7 mg/dL (0.6-1.3); MAGNESIUM 1.4 mg/dL (1.8-2.4); PHOSPHORUS 3.8 mg/dL (2.5-4.9); POTASSIUM 3.5 mmol/L (3.5-5.1)
[2019-07-27] MEDS: ONDANSETRON HCL/PF 4 MG/2 ML VIAL IVP PRN ×3 (07:14→21:39)
--- NOTE | 2019-07-27 07:16 | NUR ---
FILM LOADER NOTES NO ACUTE CHANGES NOTED DURING THE SHIFT. WILL ENDORSE TO THE AM NURSE FOR CONTINUITY OF CARE.
[2019-07-27] MEDS ORDERED: FEE PK DOSING 1 MIN EA MC ONE (07:29)
[2019-07-27 07:31] LABS: THYROID STIMULATING HORMONE 1.175 uIU/mL (0.358-3.74)
[2019-07-27 07:37] LABS: BASOPHILS % (AUTO) 0.2 % (0.0-2.0); EOSINOPHILS % (AUTO) 1.5 % (0.0-6.0); HEMATOCRIT 24 % (33-45); HEMOGLOBIN 8.1 g/dL (11.5-14.8); LYMPHOCYTES # (AUTO) 0.1 /CMM (0.8-4.8); LYMPHOCYTES % (AUTO) 4.7 % (20.0-44.0); MEAN CORPUSCULAR HGB CONC 34 g/dl (31.0-36.0); MEAN CORPUSCULAR VOLUME 100 fL (82-100); MONOCYTES # (AUTO) 0.5 /CMM (0.1-1.30); NEUTROPHILS # (AUTO) 1.7 /CMM (1.8-8.9); NEUTROPHILS % (AUTO) 73.6 % (43.0-81.0); PLATELET COUNT (AUTO) 58 /CMM (150-450); RED BLOOD CELL COUNT(AUTO) 2.41 MIL/uL (4.0-5.2); WHITE BLOOD COUNT (AUTO) 2.3 K/uL (4.3-11.0)
[2019-07-27 08:00] VITALS: BP 145/86
[2019-07-27] MEDS: CEFEPIME 2 GM in IV D5W 100 ML IV SCH ×2 (08:26→20:05)
[2019-07-27 08:31] LABS: BAND % (MANUAL) 3 % (0.0-5.0); EOSINOPHILS % (MANUAL) 1 % (0-4); LYMPHOCYTES % (MANUAL) 10 % (16-48); MONOCYTES % (MANUAL) 13 % (0-11.0); MYELOCYTES % 1 % (0-0); NEUTROPHILS % (MANUAL) 72 (42-76)
[2019-07-27] MEDS: VANCOMYCIN 0.75 GM in IV D5W 250 ML IV SCH ×2 (09:44→21:30)
[2019-07-27] MEDS: METOCLOPRAMIDE HCL 10 MG/2 ML VIAL IV PRN ×2 (11:35→18:42)
[2019-07-27] MEDS: ACETAMINOPHEN 325 MG TABLET PO PRN (11:35)
[2019-07-27 12:00] VITALS: BP 136/74
[2019-07-27] MEDS ORDERED: ONDANSETRON HCL/PF 4 MG/2 ML VIAL IVP PRN (12:30)
[2019-07-27] MEDS ORDERED: ACETAMINOPHEN 325 MG TABLET PO PRN (12:30)
[2019-07-27] MEDS: Magnesium 1GM/D5W 100ML PREMIX 100 ML IV SCH ×4 (13:02→16:12)
--- NOTE | 2019-07-27 15:37 | NUR ---
RN NOTE: PATIENT REMAINS ALERT AWAKE ORIENTED X 4. ON 3 lpm O2 VIA NC, NO BREATHING DISTRESS NOTED. DENIES CHEST PAIN & DISCOMFORT. C/O NAUSEA, CONTINUE WITH ZOFRAN & REGLAN IV NEEDED. CONTINUE TO MONITOR VITAL SIGNS. NOTED TEMP 100.2, TYLENOL PO GIVEN, COOLING MEASURES, NOTED EFFECTIVE. SAFETY MEASURES OBSERVED. ENCOURAGE PATIENT TO USE CALL LIGHT FOR ASSISTANCE. CONTINUE TO MONITOR.
[2019-07-27 16:00] VITALS: BP 126/80
[2019-07-27] MEDS: APIXABAN 2.5 MG TABLET PO SCH (16:12)
[2019-07-27] MEDS: PROSOURCE / PROSTAT (PYXIS) 30 ML UDC PO SCH ×2 (16:12→16:17)
[2019-07-27] MEDS: IV NS 0.9% 1,000 ML IV PRN (16:12)
--- NOTE | 2019-07-27 17:11 | NUR ---
Spoke with patient, she currently resides at [facility] [phone]. She requires assistance with ambulation and adl's. Has hx of non-Hodgkin's lymphoma on chemotherapy at [facility] in [place] her oncologist is Dr. Clayton Ashford [phone]. Her daughter Alda Mays [phone] is her primary source of support. Patient states she is not sure if she is going back to [facility]. Left message to patient daughter for clarification of her dc disposition. Addendum: 07/27/19 at 2233 by CRISTEL BENTON RN Amended: Links added.
[2019-07-27] MEDS: HYDROCODONE/APAP 5/325MG 1 EACH TABLET PO PRN (18:48)
--- NOTE | 2019-07-27 19:00 | NUR ---
ROVING HAND OPENING NOTES RECEIVED PATIENT IN BED, ASLEEP. BREATHING EVEN AND UNLABORED. NOT IN ANY DISTRESS. ON SUPPLEMENTAL O2 AT 3LPM VIA NASAL CANNULA. TELE MONITOR IN PLACE- SINUS TACH 110. PERIPHERAL IV INFUSING AT 75ML/HR. SAFETY MEASURES IN PLACE; CALL LIGHT WITHIN REACH. BED IN LOW, LOCKED POSITION. WILL CONTINUE TO MONITOR ACCORDINGLY
[2019-07-27 20:00] VITALS: BP 119/65
[2019-07-27] MEDS: diphenhydrAMINE HCL 25 MG CAPSULE PO SCH (21:31)
--- NOTE | 2019-07-27 21:39 | NUR ---
RN NOTES PATIENT C/O NAUSEA. ZOFRAN 4MG IV GIVEN ORDERED. WILL CONTINUE TO MONITOR
[2019-07-27] MEDS ORDERED: Medication Not On Formulary EA (Melatonin 10 MG) PO SCH (22:00)
[2019-07-28] VITALS (31 sets, daily range): BP systolic 74–158; BP diastolic 43–85
[2019-07-28] MEDS: ACETAMINOPHEN 325 MG TABLET PO PRN ×2 (03:07→13:28)
--- NOTE | 2019-07-28 03:07 | NUR ---
RN NOTES PATIENT'S TEMP. 100.1F. COOLING MEASURES DONE. TYLENOL GIVEN ORDERED.
--- NOTE | 2019-07-28 05:15 | NUR ---
RN NOTES JOURNEYMAN ELECTRICIAN CALLED (NAIMA) FOR A POSITIVE BLOOD CULTURE RESULT OF GRAM COCCI IN CHAINS ([address] LANG MADE AWARE. A/W FOR CALLBACK
[2019-07-28 07:15] LABS: CALCIUM, SERUM 8.2 mg/dL (8.5-10.1); CREATININE 0.7 mg/dL (0.6-1.3); MAGNESIUM 2.1 mg/dL (1.8-2.4); PHOSPHORUS 3.3 mg/dL (2.5-4.9); POTASSIUM 3.1 mmol/L (3.5-5.1)
--- NOTE | 2019-07-28 07:15 | NUR ---
AIRPORT BAGGAGE SCREENER NOTES OPENING PATIENT IN BED AWAKE, A/O X 4. ON 3L NASAL CANNULA . NO SOB OR DISCOMFORT NOTES AT THIS TIME. RIGHT WRIST #20 PATENT NS 75ML/H RUNNING. SINUS RHYTHM 86. BED AT THE LOWEST POSITION LOCKED, CALL LIGHT WITHIN REACH.
--- NOTE | 2019-07-28 07:24 | NUR ---
GAME ENGINEER CLOSING NOTES PATIENT IN BED, SLEEPING. BREATHING EVEN AND UNLABORED. NOT IN ANY DISTRESS. ON O2 AT 3LPM VIA NASAL CANNULA. TELE MONITOR IN PLACE- SINUS RHYTHM 80'S. PERIPHERAL IV INFUSING AT 75ML/HR. SAFETY MEASURES IN PLACE. CALL LIGHT WITHIN REACH. BED IN LOW, LOCKED POSITION. ENDORSED OLVIN TO AM RN
[2019-07-28 07:25] LABS: BASOPHILS % (AUTO) 0.1 % (0.0-2.0); EOSINOPHILS % (AUTO) 2.2 % (0.0-6.0); HEMATOCRIT 21 % (33-45); HEMOGLOBIN 7.4 g/dL (11.5-14.8); LYMPHOCYTES # (AUTO) 0.2 /CMM (0.8-4.8); LYMPHOCYTES % (AUTO) 8.1 % (20.0-44.0); MEAN CORPUSCULAR HGB CONC 34 g/dl (31.0-36.0); MEAN CORPUSCULAR VOLUME 101 fL (82-100); MONOCYTES % (AUTO) 0.3 % (2.0-12.0); NEUTROPHILS # (AUTO) 1.7 /CMM (1.8-8.9); NEUTROPHILS % (AUTO) 89.3 % (43.0-81.0); RED BLOOD CELL COUNT(AUTO) 2.13 MIL/uL (4.0-5.2)
[2019-07-28 07:46] LABS: PLATELET COUNT (AUTO) 41 /CMM (150-450); WHITE BLOOD COUNT (AUTO) 1.9 K/uL (4.3-11.0)
--- NOTE | 2019-07-28 07:48 | NUR ---
TRUMPET TEACHER NOTES (LAB) RECEIVED A CALL FROM ANTONIA IQBAL ABOUT WBC 1.9(L) AND PLT (41) WILL INFORM THE ASSIGNED MD.
[2019-07-28] MEDS: PANTOPRAZOLE 40 MG TABLET.DR PO SCH (07:52)
[2019-07-28] MEDS: LEVOTHYROXINE SODIUM 137 MCG TABLET PO SCH (07:54)
[2019-07-28 08:07] LABS: BAND % (MANUAL) 26 % (0.0-5.0); EOSINOPHILS % (MANUAL) 3 % (0-4); LYMPHOCYTES % (MANUAL) 13 % (16-48); MONOCYTES % (MANUAL) 4 % (0-11.0); NEUTROPHILS % (MANUAL) 54 (42-76)
[2019-07-28] MEDS: ONDANSETRON HCL/PF 4 MG/2 ML VIAL IVP PRN (08:16)
[2019-07-28] MEDS: IV NS 0.9% 1,000 ML IV PRN (08:23)
[2019-07-28] MEDS: CEFEPIME 2 GM in IV D5W 100 ML IV SCH (08:23)
[2019-07-28] MEDS: PROSOURCE / PROSTAT (PYXIS) 30 ML UDC PO SCH ×2 (08:31→17:00)
[2019-07-28] MEDS: MULTIVIT W/MINERALS 1 TAB TABLET PO SCH (09:00)
[2019-07-28] MEDS: LIDOCAINE 5% (PATCH) 1 EA PATCH TP SCH (09:00)
[2019-07-28] MEDS: APIXABAN 2.5 MG TABLET PO SCH ×2 (09:00→18:03)
[2019-07-28] MEDS: CHOLECALCIFEROL 1,000 UNIT TABLET (VIT D3) PO SCH (09:00)
--- NOTE | 2019-07-28 09:12 | NUR ---
LEATHER FLESHER NOTES ELIQUIS NOT ADMINISTRATED DUE TO LOW PLT 41.
[2019-07-28] MEDS ORDERED: POTASSIUM CHLORIDE 20 MEQ TAB.PRT.SR PO SCH (10:00)
[2019-07-28] MEDS ORDERED: IPRATROPIUM BROMIDE 14 GM INHALER (or 12.9 GM) IH PRN (10:30)
--- NOTE | 2019-07-28 10:32 | NUR ---
turner in notes Received a call from pharmacy to hold on vanco 1100.
--- NOTE | 2019-07-28 10:33 | NUR ---
FURNACE SETTER NOTES PER CAMMY Rajput DISTILLER IT IS OK TO CONTINUE THE ELIQUIS.
[2019-07-28 10:36] LABS: ABG BASE EXCESS -1.2 mmol/L; ABG OXYGEN SATURATION 97.3 % (92.0-98.5); ABG PCO2 35.3 mmHg (35.0-45.0); ABG PH 7.429 (7.350-7.450); ABG PO2 113.6 mmHg (75.0-100.0); AaDO2 564.1 mmHg; COHb 0.6 % (0.5-1.5); MetHb 0.4 % (0.0-1.5); O2Hb 96.3 % (94.0-97.0); SITE, ABG Right Radial; VENT MODE, BG NRB AT 15LPM
[2019-07-28] MEDS ORDERED: CT SWABBABLE VALVE TRANS SET 1 EA INFUS.SET MC ONE (10:46)
[2019-07-28] MEDS ORDERED: IOHEXOL-350 100 ML VIAL IV ONE (10:47)
[2019-07-28] MEDS ORDERED: IV NS 0.9% 250 ML IV ONE (10:47)
[2019-07-28] MEDS ORDERED: methylPREDNISolone SOD SUCC 40 MG/ML VIAL IV ONE (11:00)
[2019-07-28] MEDS: VANCOMYCIN 1 GM in IV D5W 250 ML IV SCH ×2 (11:00→23:07)
--- NOTE | 2019-07-28 12:15 | NUR ---
RENOVATOR MACHINE OPERATOR NOTES PATIENT WAS TAKEN TO PERFORM CT WITH CONTRAST. PATIENT WAS SAFELY TRANSPORTED TO CT AND BACK WITH RN.
[2019-07-28] MEDS: METOCLOPRAMIDE HCL 10 MG/2 ML VIAL IV PRN (13:12)
[2019-07-28] MEDS ORDERED: LORAZEPAM INJ 2 MG/ML VIAL IV ONE (15:00)
--- NOTE | 2019-07-28 15:05 | NUR ---
RN MOBILE NOTES TRANSFERRED PATIENT SAFELY TO ICU, SHE IS STILL HAVING TACHYCARDIA, PATIENT LETHARGIC AND CONFUSED. BP 109/57 HR 160.
--- NOTE | 2019-07-28 15:20 | NUR ---
MEDICAL REVIEW COORDINATOR NOTES PATIENT WAS TRANSPORTED TO RADIOLOGY TO PERFORM CT WITHOUT CONTRAST. SHE WAS SAFELY BACK TO UNIT WITH THE RN AT 0548
[2019-07-28 16:43] LABS: ABG BASE EXCESS -1.9 mmol/L; ABG PCO2 32.1 mmHg (35.0-45.0); ABG PH 7.447 (7.350-7.450); ABG PO2 277.4 mmHg (75.0-100.0); AaDO2 403.5 mmHg; COHb 0.6 % (0.5-1.5); MetHb 0.7 % (0.0-1.5); O2Hb 97.7 % (94.0-97.0); SITE, ABG Right Radial; VENT MODE, BG NON REBREATHER 100%
--- NOTE | 2019-07-28 16:45 | NUR ---
RADIOLOGIC TECHNOLOGY TEACHER NOTES CALLED RAPID RESPONSE FOR THE PATIENT DUE TO TACHYCARDIA (164) , PATIENT IS ON 3 L NASAL CANNULA 94%.
[2019-07-28] MEDS ORDERED: methylPREDNISolone SOD SUCC 40 MG/ML VIAL IV SCH (17:00)
[2019-07-28] MEDS ORDERED: FUROSEMIDE 40 MG/4 ML VIAL IV ONE (17:00)
[2019-07-28] MEDS ORDERED: AMIODARONE 900 MG in IV D5W 482 ML IV PRN (17:00)
[2019-07-28] MEDS ORDERED: AMIODARONE 150 MG in IV D5W 100 ML IV ONE (17:00)
--- NOTE | 2019-07-28 17:00 | NUR ---
PATIENT TRANSFERRED TO ICU S/P RUBBER BOOTS AND SHOES REPAIRER SECONDARY TO AMS, ACUTE ONSET OF AFIB WITH RVR 160'S. SAMY CEDEÑO, ATTENDING HOSPITALIST AT BEDSIDE WHEN RUBBER BOOTS AND SHOES REPAIRER CALLED. PATIENT LETHARGIC, BUT AROUSABLE TO NAME AND TOUCH.
--- NOTE | 2019-07-28 18:04 | NUR ---
POOL CLEANER NOTES PATIENT IS LETHARGIC AND NOT ABLE TO TAKE PO PROCOSE.
--- NOTE | 2019-07-28 18:30 | NUR ---
PATIENT DAUGHTER [place] UPDATED WITH PATIENT CONDITION. PER DAUGHTER-SHE [place] AND GAVE PERMISSION TO GIVE INFORMATION TO ALEXANDRU BRUSH REGARDING PATIENT. SPOKE TO SAMY REGARDING DECREASED BP. JOANN DRIP PRN ORDERS GIVEN.
[2019-07-28] MEDS ORDERED: PHENYLEPHRINE 40 MG in IV D5W 250 ML IV PRN (19:00)
[2019-07-28] MEDS ORDERED: IV D5/ 0.9% NACL 1,000 ML IV ONE (19:30)
--- NOTE | 2019-07-28 19:51 | NUR ---
BOOM TENDER NOTES PATIENT IS A/OX2 , ABLE TO OPEN EYES AND HAVE CLEAR CONVERSATION. PATIENT WAS ABLE TO HAVE PO MED WITH NO COMPLICATION. SINUS TACHY 134. ON NASAL CANNULA 5 L . ABLE TO HAVE 2100 URINE OUTPUT WITH SEGURA CATHETER. CALL LIGHT WITHIN REACH , BED ON THE LOWEST POSITION LOCKED. ENDORSED TO CEMENT TILE MAKER NURSE FOR OLVIN.
[2019-07-28] MEDS ORDERED: POTASSIUM CHLORIDE 20 MEQ POWDER PACKET PO SCH (20:00)
[2019-07-28] MEDS ORDERED: POTASSIUM CHLORIDE 20 MEQ POWDER PACKET ONE (20:15)
--- NOTE | 2019-07-28 20:20 | NUR ---
BODY ART TECHNICIAN: PT ABLE TO WAKE UP AND STAY ALERT TO TAKE KCL 40MEQ PO. ASPIRATION PRECAUTION NOTED AT ALL TIMES. WILL HOLD NGT INSERTION AT THIS TIME. WILL CONTINUE TO MONITOR.
[2019-07-28] MEDS ORDERED: MEROPENEM 500 MG in IV NS 0.9% 50 ML IV SCH (21:00)
[2019-07-28] MEDS: diphenhydrAMINE HCL 25 MG CAPSULE PO SCH (22:00)
[2019-07-28] MEDS: MEROPENEM 1 G in IV NS 0.9% 100 ML IV SCH (22:23)
--- NOTE | 2019-07-28 22:40 | NUR ---
BALANCE STAFF INSPECTOR: WILL HOLD BENADRYL. PT IS LETHARGIC AND NOT ITCHING. PHENYLEPHRINE STARTED AT 50MCG/MIN FOR BP SUPPORT. MERREM GIVEN LATE D/T NO ADDITIONAL IV ACCESS UNTIL LATER (INCOMPATIBLE WT AMIODARONE DRIP). PT WAKES UP AND ABLE TO TALK WT TOUCH STIMULI. WILL CONTINUE TO MONITOR.
[2019-07-29] VITALS (59 sets, daily range): BP systolic 91–147; BP diastolic 44–85
--- NOTE | 2019-07-29 00:15 | NUR ---
FOAM RUBBER MIXER: CALLED AND NOTIFIED DR. LANG THAT PT CONVERTED TO NSR AND THEN SB WT HR IN THE 30s, NON-SUSTAINED THEN BACK TO LOW 60s. WT ORDER TO DC AMIODARONE DRIP. NOTED AND CARRIED OUT.
[2019-07-29] MEDS: IPRATROPIUM NEB FS 0.5 MG/2.5 ML AMPUL.NEB NEB PRN (04:03)
[2019-07-29] MEDS: ALBUTEROL FS 2.5 MG/0.5 ML VIAL.NEB NEB PRN (04:03)
--- NOTE | 2019-07-29 04:10 | NUR ---
SIX SIGMA BLACK TRAINER: PLACED ON 6L 02 VIA FACE MASK D/T DESATURATION IN THE 80s. BREATHING TX DONE WT GOOD EFFECT. PT MORE ALERT AND AWAKE. ABLE TO TALK AND MAKE NEEDS KNOWN. REMAINS NSR ON FRINGE MAKER. WILL CONTINUE TO MONITOR.
[2019-07-29 04:26] LABS: BASOPHILS % (AUTO) 0.2 % (0.0-2.0); EOSINOPHILS % (AUTO) 0.1 % (0.0-6.0); HEMATOCRIT 24 % (33-45); LYMPHOCYTES # (AUTO) 0.3 /CMM (0.8-4.8); LYMPHOCYTES % (AUTO) 4.4 % (20.0-44.0); MEAN CORPUSCULAR HGB CONC 34 g/dl (31.0-36.0); MEAN CORPUSCULAR VOLUME 102 fL (82-100); MONOCYTES % (AUTO) 0.4 % (2.0-12.0); NEUTROPHILS # (AUTO) 6.2 /CMM (1.8-8.9); NEUTROPHILS % (AUTO) 94.9 % (43.0-81.0); PLATELET COUNT (AUTO) 54 /CMM (150-450); RED BLOOD CELL COUNT(AUTO) 2.33 MIL/uL (4.0-5.2); WHITE BLOOD COUNT (AUTO) 6.5 K/uL (4.3-11.0)
[2019-07-29 05:08] LABS: CALCIUM, SERUM 8.8 mg/dL (8.5-10.1); CREATININE 0.9 mg/dL (0.6-1.3); PHOSPHORUS 2.6 mg/dL (2.5-4.9); POTASSIUM 4.1 mmol/L (3.5-5.1)
[2019-07-29 05:11] LABS: BAND % (MANUAL) 3 % (0.0-5.0); EOSINOPHILS % (MANUAL) 1 % (0-4); LYMPHOCYTES % (MANUAL) 6 % (16-48); MONOCYTES % (MANUAL) 3 % (0-11.0); NEUTROPHILS % (MANUAL) 87 (42-76)
[2019-07-29] MEDS: MEROPENEM 1 G in IV NS 0.9% 100 ML IV SCH ×2 (06:20→10:35)
[2019-07-29] MEDS: PANTOPRAZOLE 40 MG TABLET.DR PO SCH (06:31)
--- NOTE | 2019-07-29 06:50 | NUR ---
MIDDLE SCHOOL ART TEACHER: REMAINED A/0 X 3. ON 6L 02 VIA FACE MASK. NO ACUTE DISTRESS. NO C/O PAIN. STILL ON NEOSYNEPHRINE AT 50MCG/MIN. ALL NEEDS MET. SAFETY PRECAUTION NOTED.
[2019-07-29] MEDS: LEVOTHYROXINE SODIUM 137 MCG TABLET PO SCH (07:42)
--- NOTE | 2019-07-29 07:45 | NUR ---
ICU/RN INITIAL NOTE,AM RECEIVED BEDSIDE REPORT FROM NIGHT NURSE. PT ALERT, AWAKE, FOLLOWS COMMANDS. ON 5LITERS SIMPLE MASK. PT NOTED TO BE ANXIOUS. SINUS ON TELE. SEGURA CATH IN PLACE, DRAINING YELLOW URINE. SKIN INTACT. RIGHT UPPER ARM ARIANA CATH NOTED, PIV AND MIDLINE PATENT AND INTACT, NO S/S OF INFECTION OR INFILTRATION NOTED. IV FLUIDS INFUSING ORDERED PT ON 50MCG OF JOANN FOR BP SUPPORT, WILL TITRATE PER PROTOCOL. ALL NEEDS WILL BE ATTENDED TO, SAFETY MEASURES TAKEN, BED IN LOW POSITION, SIDE RAILS UP, CALL LIGHT WITHIN REACH. WILL CONTINUE CARE.
[2019-07-29] MEDS ORDERED: POTASSIUM CHLORIDE 20 MEQ POWDER PACKET PO ONE (08:00)
[2019-07-29] MEDS: PROSOURCE / PROSTAT (PYXIS) 30 ML UDC PO SCH ×2 (08:49→17:00)
[2019-07-29] MEDS: CHOLECALCIFEROL 1,000 UNIT TABLET (VIT D3) PO SCH (08:49)
[2019-07-29] MEDS: MULTIVIT W/MINERALS 1 TAB TABLET PO SCH (08:49)
[2019-07-29] MEDS: APIXABAN 2.5 MG TABLET PO SCH ×2 (08:49→17:16)
[2019-07-29] MEDS: LIDOCAINE 5% (PATCH) 1 EA PATCH TP SCH (08:50)
[2019-07-29] MEDS: ONDANSETRON HCL/PF 4 MG/2 ML VIAL IVP PRN ×2 (09:11→17:28)
--- NOTE | 2019-07-29 09:50 | NUR ---
ICU/RN: PT NOTED TO BE ANXIOUS, LABORED RESPIRATIONS AND DESATURATING. PLACED ON NON REBREATHER MASK, TOLERATING WELL. WILL CONTINUE TO MONITOR
--- NOTE | 2019-07-29 10:00 | NUR ---
ICU/RN: JOANN OFF, VSS. WILL CONTINUE TO MONITOR. SEE VITALS CHARTED
[2019-07-29] MEDS ORDERED: IV D5/ 0.9% NACL 1,000 ML IV PRN (12:30)
[2019-07-29] MEDS: VANCOMYCIN 1 GM in IV D5W 250 ML IV SCH ×2 (12:40→23:59)
[2019-07-29] MEDS: IV D5/ 0.9% NACL 1,000 ML IV PRN (14:53)
[2019-07-29] MEDS: ACETAMINOPHEN 325 MG TABLET PO PRN ×2 (15:00→16:42)
[2019-07-29 17:07] LABS: BASOPHILS % (AUTO) 0.3 % (0.0-2.0); EOSINOPHILS % (AUTO) 0.3 % (0.0-6.0); HEMATOCRIT 21 % (33-45); LYMPHOCYTES # (AUTO) 0.1 /CMM (0.8-4.8); LYMPHOCYTES % (AUTO) 3.9 % (20.0-44.0); MEAN CORPUSCULAR HGB CONC 33 g/dl (31.0-36.0); MEAN CORPUSCULAR VOLUME 100 fL (82-100); MONOCYTES # (AUTO) 0.3 /CMM (0.1-1.30); MONOCYTES % (AUTO) 10.3 % (2.0-12.0); NEUTROPHILS # (AUTO) 2.6 /CMM (1.8-8.9); NEUTROPHILS % (AUTO) 85.2 % (43.0-81.0); RED BLOOD CELL COUNT(AUTO) 2.09 MIL/uL (4.0-5.2); WHITE BLOOD COUNT (AUTO) 3.1 K/uL (4.3-11.0)
[2019-07-29 17:13] LABS: CREATININE 0.9 mg/dL (0.6-1.3); POTASSIUM 3.2 mmol/L (3.5-5.1)
[2019-07-29 17:20] LABS: ALBUMIN 2.1 g/dL (3.4-5.0); BILIRUBIN,TOTAL 0.5 mg/dL (0.2-1.0); MAGNESIUM 1.6 mg/dL (1.8-2.4); TOTAL PROTEIN, SERUM 4.8 g/dL (6.4-8.2)
[2019-07-29 17:44] LABS: PLATELET COUNT (AUTO) 31 /CMM (150-450)
--- NOTE | 2019-07-29 17:45 | NUR ---
ICU/RN: RECEIVED CRITICAL PLT, CALLED SAMY CHAWLA AND INFORMED. ALSO CALLED . NO NEW ORDERS RECEIVED. WILL CONTINUE TO MONITOR. ORDERS RECEIVED TO REPLACE POTASSIUM AND MAGNESIUM, WILL FOLLOW THROUGH.
[2019-07-29 17:49] LABS: BAND % (MANUAL) 10 % (0.0-5.0); EOSINOPHILS % (MANUAL) 1 % (0-4); LYMPHOCYTES % (MANUAL) 7 % (16-48); METAMYELOCYTES % 1 % (0-0); MONOCYTES % (MANUAL) 15 % (0-11.0); NEUTROPHILS % (MANUAL) 64 (42-76); REACTIVE LYMPHOCYTES 2 % (0-0)
[2019-07-29] MEDS: AMPICILLIN 1 GM in IV NS 0.9% 50 ML IV SCH ×2 (18:17→23:20)
--- NOTE | 2019-07-29 19:00 | NUR ---
ICU/RN: AT BEDSIDE. PT ASSESSED. WILL REQUEST RECORDS FROM PREVIOUS HOSPITAL IN AM. NO NEW ORDERS AT THIS TIME. LAB ORDERS PLACED BY . WILL CONTINUE TO MONITOR. Addendum: 07/29/19 at 1928 by CAT KIM RN WRONG PT, PLEASE DISREGARD
[2019-07-29] MEDS: POTASSIUM CL. PREMIX PERIPHER. 50 ML IV SCH ×4 (19:10→22:20)
--- NOTE | 2019-07-29 19:21 | NUR ---
ICU/RN ENDING NOTES,AM REPORT ENDORSED TO NIGHT NURSE FOR OLVIN. PT ALERT, AWAKE, FOLLOWS COMMANDS. PT NOTED TO BE WEAK, POOR APPETITE. CURRENTLY SWITCHED TO 5LITERS NASAL CANULA IN ATTEMPT TO EAT. EXECUTIVE ASSISTANT AT BEDSIDE. SEGURA CATH DRAINING URINE. IV FLUIDS INFUSING ORDERED. PIV'S PATENT AND INTACT. NO S/S OF INFECTION OR INFILTRATION NOTED. ALL NEEDS WILL BE ATTENDED TO, SAFETY MEASURES TAKEN, BED IN LOW POSITION, SIDE RAILS UP, CALL LIGHT WITHIN REACH. WILL CONTINUE CARE.
--- NOTE | 2019-07-29 19:26 | NUR ---
ICU/RN ENDING NOTES,AM BEDSIDE REPORT ENDORSED TO NIGHT NURSE. PT ALERT, AWAKE, FOLLOWS COMMANDS. ALL NEEDS ATTENDED TO. PT ON 3LITERS NASAL CANULA, NO ACUTE DISTRESS NOTED. SINUS TACH ON TELE. PT WAS ABLE TO GO TO BEDSIDE COMMODE. ALL NEEDS ATTENDED TO, SAFETY MEASURES TAKEN, BED IN LOW POSITION, SIDE RAILS UP, CALL LIGHT WITHIN REACH. WILL CONTINUE CARE. Addendum: 07/29/19 at 1928 by CAT KIM RN WRONG PT, PLEASE DISREGARD NOTE
--- NOTE | 2019-07-29 19:30 | NUR ---
INDUSTRIAL DIAMOND POLISHER RCD PT W/DX SEPSIS, PNA. NSR ON MONITOR. A/O x4 ABLE TO MAKE NEEDS KNOWN AND ABLE TO REPOSITION SELF. O2 6L NC W/DIMINISHED LUNG SOUNDS. SKIN INTACT. SEGURA DRAINING CLEAR YELLOW URINE. R AC MIDLINE W/D5NS @ 50 ML/HR ONGOING REPLACEMENT OF POTASSIUM AND MAGNESIUM. NO BP / BLOOD DRAW TO LEFT ARM. PT DENIES PAIN. NO SOB. PRIVATE CAREGIVER AT BEDSIDE.
[2019-07-29] MEDS: diphenhydrAMINE HCL 25 MG CAPSULE PO SCH (21:36)
[2019-07-29] MEDS: Magnesium 1GM/D5W 100ML PREMIX 100 ML IV SCH ×2 (22:20→23:20)
[2019-07-30] VITALS (28 sets, daily range): BP systolic 91–141; BP diastolic 47–72
[2019-07-30 05:16] LABS: BASOPHILS % (AUTO) 0.5 % (0.0-2.0); EOSINOPHILS % (AUTO) 0.2 % (0.0-6.0); LYMPHOCYTES # (AUTO) 0.2 /CMM (0.8-4.8); LYMPHOCYTES % (AUTO) 4.4 % (20.0-44.0); MEAN CORPUSCULAR HGB CONC 34 g/dl (31.0-36.0); MEAN CORPUSCULAR VOLUME 101 fL (82-100); MONOCYTES # (AUTO) 0.4 /CMM (0.1-1.30); MONOCYTES % (AUTO) 9.3 % (2.0-12.0); NEUTROPHILS # (AUTO) 4.1 /CMM (1.8-8.9); NEUTROPHILS % (AUTO) 85.6 % (43.0-81.0); WHITE BLOOD COUNT (AUTO) 4.7 K/uL (4.3-11.0)
[2019-07-30 05:22] LABS: CALCIUM, SERUM 8.2 mg/dL (8.5-10.1); CREATININE 0.8 mg/dL (0.6-1.3); MAGNESIUM 2.3 mg/dL (1.8-2.4); PHOSPHORUS 1.7 mg/dL (2.5-4.9); POTASSIUM 3.7 mmol/L (3.5-5.1)
[2019-07-30 05:27] LABS: HEMATOCRIT 20 % (33-45); RED BLOOD CELL COUNT(AUTO) 1.99 MIL/uL (4.0-5.2)
[2019-07-30 05:28] LABS: HEMOGLOBIN 6.8 g/dL (11.5-14.8); PLATELET COUNT (AUTO) 30 /CMM (150-450)
[2019-07-30] MEDS: AMPICILLIN 1 GM in IV NS 0.9% 50 ML IV SCH ×3 (05:30→17:39)
[2019-07-30] MEDS: ONDANSETRON HCL/PF 4 MG/2 ML VIAL IVP PRN ×3 (05:40→18:23)
--- NOTE | 2019-07-30 05:42 | NUR ---
PERFECT BINDER OPERATOR PT C/O UPSET STOMACH REQUESTED ZOFRAN; ADMINISTERED ORDERED. CONTINUE TO MONITOR.
[2019-07-30 05:43] LABS: EOSINOPHILS % (MANUAL) 4 % (0-4); LYMPHOCYTES % (MANUAL) 3 % (16-48); MONOCYTES % (MANUAL) 6 % (0-11.0); NEUTROPHILS % (MANUAL) 87 (42-76)
--- NOTE | 2019-07-30 06:00 | NUR ---
ELECTRONICS LEAD HG 6.8 W/ORDERS TO TRANSFUSE ONE UNIT PRBC. CONTINUE TO MONITOR.
--- NOTE | 2019-07-30 08:00 | NUR ---
ICU/RN INITIAL NOTE,AM RECEIVED BEDSIDE REPORT FROM NIGHT NURSE. PT ALERT, AWAKE, FOLLOWS COMMANDS YET LETHARGIC. ON 5LITERS NASAL CANULA. SINUS TACH ON TELE. SEGURA CATH IN PLACE, DRAINING YELLOW URINE. SKIN INTACT. RIGHT UPPER ARM ARIANA CATH NOTED, PIV AND MIDLINE PATENT AND INTACT, NO S/S OF INFECTION OR INFILTRATION NOTED. IV FLUIDS INFUSING ORDERED. ONE UNIT PRBC PENDING FOR TRANSFUSION. ALL NEEDS WILL BE ATTENDED TO, SAFETY MEASURES TAKEN, BED IN LOW POSITION, SIDE RAILS UP, CALL LIGHT WITHIN REACH. WILL CONTINUE CARE.
[2019-07-30] MEDS: LIDOCAINE 5% (PATCH) 1 EA PATCH TP SCH (08:07)
[2019-07-30] MEDS: LEVOTHYROXINE SODIUM 137 MCG TABLET PO SCH (08:08)
[2019-07-30] MEDS: PANTOPRAZOLE 40 MG TABLET.DR PO SCH (08:08)
[2019-07-30] MEDS: PROSOURCE / PROSTAT (PYXIS) 30 ML UDC PO SCH ×2 (08:08→17:00)
[2019-07-30] MEDS: CHOLECALCIFEROL 1,000 UNIT TABLET (VIT D3) PO SCH (08:08)
[2019-07-30] MEDS: busPIRone 5 MG TABLET PO SCH ×3 (08:08→17:39)
[2019-07-30] MEDS: APIXABAN 2.5 MG TABLET PO SCH ×2 (08:08→17:00)
[2019-07-30] MEDS: MULTIVIT W/MINERALS 1 TAB TABLET PO SCH (08:08)
--- NOTE | 2019-07-30 09:20 | NUR ---
ICU/RN: BLOOD TRANSFUSION STARTED. CONSENT IN CHART. NO S/S OF ADVERSE REACTIONS NOTED. WILL CONTINUE TO MONITOR.
[2019-07-30] MEDS: ACETAMINOPHEN 325 MG TABLET PO PRN (09:43)
[2019-07-30] MEDS: VANCOMYCIN 1 GM in IV D5W 250 ML IV SCH ×2 (11:21→23:25)
[2019-07-30] MEDS ORDERED: K PHOS NEUTRAL 250 MG TABLET PO ONE (11:30)
--- NOTE | 2019-07-30 12:45 | NUR ---
ICU/RN: BLOOD TRANSFUSION COMPLETE. TOLERATED WELL. NO S/S OF ADVERSE REACTIONS NOTED. VSS.
[2019-07-30] MEDS: IV D5/ 0.9% NACL 1,000 ML IV PRN ×2 (13:55→22:11)
--- NOTE | 2019-07-30 16:00 | NUR ---
ICU/RN: PT TURNED AND REPOSITIONED, REDNESS NOTED ON BUTTOCKS IN AM. Z GUARD APPLIED. RIGHT HEEL REDNESS, HEEL OFF LOADED, UNABLE TO EDIT FLOW SHEET FOR 0800 AND 1200. WILL CONTINUE SKIN CARE. WOUND CONSULT ORDERED
[2019-07-30] MEDS: ENSURE ENLIVE CHOC 237 ML CAN PO SCH (17:39)
--- NOTE | 2019-07-30 18:57 | NUR ---
ICU/RN ENDING NOTES,AM BEDSIDE REPORT WILL BE ENDORSED TO NIGHT NURSE. PT ALERT, RESTING COMFORTABLY IN BED. ON NASAL CANULA 5 LITERS TOLERATING WELL. SINUS TACH/SINUS RHYTHM ON TELE. VSS, SEGURA CATH IN PLACE, DRAINING YELLOW URINE. POOR APPETITE NOTED. ENSURE ORDERED. PT DRANK ONE FOR DINNER. PT TURNED AND REPOSITIONED, BED BATH GIVEN, SKIN CARE DONE. ALL NEEDS ATTENDED TO, SAFETY MEASURES TAKEN, BED IN LOW POSITION, SIDE RAILS UP, CALL LIGHT WITHIN REACH. WILL ENDORSE FOR CONTINUATION OF CARE.
[2019-07-30] MEDS ORDERED: Z GUARD REMEDY 2 OZ OINT TP PRN (19:00)
[2019-07-30] MEDS ORDERED: CEFEPIME 1 GM in IV D5W 50 ML IV SCH (19:00)
--- NOTE | 2019-07-30 19:30 | NUR ---
RN NOTES RECEIVED PATIENT RESTING ON BED. WITH O2 5LPM VIA NC SATURATION 96%. TEMPERATURE 99 DEGREE WARMTH TO TOUCH AFEBRILE. ST ON TELE MONITOR HR 114 PATIENT IS AOX3 VERBALLY RESPONSIVE. DENIES PAIN AT THIS TIME BUT COUGHING MORE OFTEN. WHEEZING ON LEFT SIDE OF THE LUNG. IV SITE ON RAC MIDLINE WITH D5NS @ 50 ML/HR INTACT AND PATENT. HOB KEPT ELEVATED OFFLOADED EXT WITH PILLOWS. TURNED AND REPOSITIONED PATIENT FOR SKIN CARE. PATIENT IS CLEAN AND DRY. WILL CONTINUE TO MONITOR.
[2019-07-30] MEDS: IPRATROPIUM NEB FS 0.5 MG/2.5 ML AMPUL.NEB NEB PRN (20:15)
[2019-07-30] MEDS: ALBUTEROL FS 2.5 MG/0.5 ML VIAL.NEB NEB PRN (20:15)
[2019-07-30] MEDS: CEFEPIME 2 GM in IV D5W 100 ML IV SCH (20:45)
[2019-07-30] MEDS: diphenhydrAMINE HCL 25 MG CAPSULE PO SCH (22:09)
[2019-07-31] VITALS (23 sets, daily range): BP systolic 97–148; BP diastolic 38–79
--- NOTE | 2019-07-31 | NUR ---
RN NOTES VS CHECKED REMAINED ST HR 103, WITH TEMPERATURE OF 100 DEGREE FHARENHEIGHT COOLING MEASURES RENDERED.
[2019-07-31 04:26] LABS: BASOPHILS % (AUTO) 0.5 % (0.0-2.0); EOSINOPHILS % (AUTO) 0.7 % (0.0-6.0); HEMATOCRIT 23 % (33-45); HEMOGLOBIN 7.9 g/dL (11.5-14.8); LYMPHOCYTES # (AUTO) 0.2 /CMM (0.8-4.8); LYMPHOCYTES % (AUTO) 2.7 % (20.0-44.0); MEAN CORPUSCULAR HGB CONC 34 g/dl (31.0-36.0); MEAN CORPUSCULAR VOLUME 99 fL (82-100); MONOCYTES # (AUTO) 0.5 /CMM (0.1-1.30); NEUTROPHILS % (AUTO) 89.1 % (43.0-81.0); RED BLOOD CELL COUNT(AUTO) 2.35 MIL/uL (4.0-5.2); WHITE BLOOD COUNT (AUTO) 6.7 K/uL (4.3-11.0)
[2019-07-31 04:42] LABS: CALCIUM, SERUM 7.9 mg/dL (8.5-10.1); CREATININE 0.7 mg/dL (0.6-1.3); MAGNESIUM 1.9 mg/dL (1.8-2.4); PHOSPHORUS 2.3 mg/dL (2.5-4.9); PLATELET COUNT (AUTO) 24 /CMM (150-450); POTASSIUM 3.3 mmol/L (3.5-5.1)
[2019-07-31 05:02] LABS: BAND % (MANUAL) 11 % (0.0-5.0); EOSINOPHILS % (MANUAL) 1 % (0-4); LYMPHOCYTES % (MANUAL) 3 % (16-48); MONOCYTES % (MANUAL) 2 % (0-11.0); NEUTROPHILS % (MANUAL) 83 (42-76)
--- NOTE | 2019-07-31 06:00 | NUR ---
RN NOTES TORSTEN FROM LAB CALLED REPORTED CRITICAL VALUE OF PLATELET 24, FROM DR. WATKINS'S NOTED TO TRANSFUSE PLATELET IF THE PLATELET IS <10K NNO. PATIENT DENIES ANY PAIN BUT STILL FEEL WEAK AT THIS TIME ENCOURAGE TO EAT, INEFFECTIVE. WILL CONTINUE TO MONITOR.
--- NOTE | 2019-07-31 07:00 | NUR ---
RN NOTES PATIENT ASLEEP WELL ABOUT 8 HRS AT NIGHT. TOLERAtED O2 5LPM VIA NC SATURATION KEPT >92%. TMAX [address]IT. SR - ST ON TELE MONITOR. INCONTINENT CARE RENDERED. IV ATB ADMINISTERED ORDERED. KEPT PT CLEAN AND COMFORTABLE IN BED. SEGURA CATH INTACT AND PATENT KEPT OFF FROM THE FLOOR. ENDORSED CONTINUITY OF CARE TO AM NURSE.
[2019-07-31] MEDS: PANTOPRAZOLE 40 MG TABLET.DR PO SCH (08:46)
[2019-07-31] MEDS: LEVOTHYROXINE SODIUM 137 MCG TABLET PO SCH (08:46)
--- NOTE | 2019-07-31 08:46 | NUR ---
WOUND CARE CONSULT: PT REFUSED SKIN ASSESSMENT AT THIS TIME. WILL ATTEMPT TO SEE PT AT LATER TIME. DISCUSSED SKIN PROTECTION WITH NURSING STAFF. CURRENT ALAINA SCORE IS 14.
[2019-07-31] MEDS: CEFEPIME 2 GM in IV D5W 100 ML IV SCH ×2 (08:54→20:21)
[2019-07-31] MEDS: ONDANSETRON HCL/PF 4 MG/2 ML VIAL IVP PRN ×2 (08:54→18:59)
[2019-07-31] MEDS: APIXABAN 2.5 MG TABLET PO SCH ×2 (09:00→17:00)
--- NOTE | 2019-07-31 09:00 | NUR ---
Eliquis 2.5 mg not given because of epistaxis. Platelet 24 k today.
[2019-07-31] MEDS: ENSURE ENLIVE CHOC 237 ML CAN PO SCH ×3 (09:06→17:44)
[2019-07-31] MEDS: ACETAMINOPHEN 325 MG TABLET PO PRN (09:58)
[2019-07-31] MEDS: LIDOCAINE 5% (PATCH) 1 EA PATCH TP SCH (09:58)
[2019-07-31] MEDS: CHOLECALCIFEROL 1,000 UNIT TABLET (VIT D3) PO SCH (09:58)
[2019-07-31] MEDS: MULTIVIT W/MINERALS 1 TAB TABLET PO SCH (09:58)
[2019-07-31] MEDS: busPIRone 5 MG TABLET PO SCH ×3 (10:01→17:49)
[2019-07-31] MEDS: PROSOURCE / PROSTAT (PYXIS) 30 ML UDC PO SCH ×2 (10:11→17:00)
[2019-07-31] MEDS: POTASSIUM CL. PREMIX PERIPHER. 50 ML IV SCH ×2 (10:21→11:40)
[2019-07-31] MEDS ORDERED: K PHOS NEUTRAL 250 MG TABLET PO ONE (11:30)
[2019-07-31] MEDS: DILTIAZEM HCL 30 MG TABLET PO SCH ×2 (11:39→20:22)
[2019-07-31] MEDS ORDERED: FUROSEMIDE 40 MG/4 ML VIAL IV STA (12:03)
[2019-07-31] MEDS: VANCOMYCIN 1 GM in IV D5W 250 ML IV SCH ×3 (12:14→23:20)
[2019-07-31] MEDS: HYDROCODONE/APAP 5/325MG 1 EACH TABLET PO PRN (12:37)
--- NOTE | 2019-07-31 19:40 | NUR ---
RN NOTES RECEIVED PATIENT AWAKE ON BED. BREATHING EVEN AND UNLABORED. DENIES PAIN. PATIENT STILL WITH POOR APPETITE, DAUGHTER AT BEDSIDE. ENCOURAGING HER MOM TO EAT. PATIENT IS AOX3 ABLE TO MAKE KNOWN NEEDS. PER PATIENT SHE FEELS WEAK STILL AND JUST WANT TO REST. ST ON TELE MONITOR HR 110. AFEBRILE. TEMP 99 DEGREE. IV SITE ON RA MIDLINE INTACT AND PATENT RUNNING WITH D5NS @ 50 ML/HR.. KEPT PT CLEAN AND DRY. ENCOURAGED TO TURN AND REPOSITIONED WITH ASSIST. CALL LIGHT KEPT WITHIN EASY REACH REMINDED TO USED FOR ASSISTANCE.
[2019-07-31] MEDS: IV D5/ 0.9% NACL 1,000 ML IV PRN (21:01)
[2019-07-31] MEDS: diphenhydrAMINE HCL 25 MG CAPSULE PO SCH (21:30)
[2019-08-01] VITALS (39 sets, daily range): BP systolic 91–139; BP diastolic 43–82
[2019-08-01 04:28] LABS: CALCIUM, SERUM 8.2 mg/dL (8.5-10.1); CREATININE 0.8 mg/dL (0.6-1.3); POTASSIUM 3.7 mmol/L (3.5-5.1)
[2019-08-01] MEDS: DILTIAZEM HCL 30 MG TABLET PO SCH ×3 (05:29→20:47)
--- NOTE | 2019-08-01 07:00 | NUR ---
RN NOTES PATIENT REMAINED STABLE THROUGHOUT THE SHIFT. AFEBRILE. VSS. NO SOB TOLERATED O2 4LPM VIA NC SATURATION >92%. CONTINUE WITH IVF D5NS @ 50 ML/HR. ALL IV AND PO ATB ADMINISTERED AND TOLERATED WELL. PATIENT IS WELL RESPONDED TO CARDIZEM PO. HR WAS RUNNING 86-90'S. SR ON TELE MONITOR. INCONTINENT CARE RENDERED. BMX2. KEPT PT CLEAN AND DRY. CALL LIGHT REMINDED TO USE FOR ASSISTANCE. KEPT CALL IGHT WITHIN EASY REACH. ENDORSED CONTINUITY OF CARE TO AM NURSE. AND TO MAKE SURE THAT THE PATIENT EAT WELL, OR TO CALL THE DAUGHTER [place] SO SHE CAN HELP FEEDING THE PATIENT.
--- NOTE | 2019-08-01 07:15 | NUR ---
MAINSPRING STRIP INSPECTOR OPENING NOTES RECEIVED RAPAPORT FROM PM NURSE.PATIENT IS SLEEPING.EASILY AROUSABLE. BREATHING EVEN AND UNLABORED. DENIES PAIN. AXOX3 .ABLE TO MAKE KNOWN NEEDS. SR ON TELE MONITOR HR 86. IV SITE ON RA MIDLINE INTACT AND PATENT RUNNING WITH D5NS @ 50 ML/HR.HAS SEGURA CATH DRAINING YELLOW URINE.BED IS LOW AND IN LOCKED POSITION.CALL LIGHT IN REACH.BED ALARM ON .SAFETY AND ASPIRATION MEASURES IN PLACE.SRX3.WILL CONTINUE TO MONITOR.
[2019-08-01] MEDS: PANTOPRAZOLE 40 MG TABLET.DR PO SCH (07:41)
[2019-08-01] MEDS: ENSURE ENLIVE CHOC 237 ML CAN PO SCH ×3 (07:41→17:14)
[2019-08-01] MEDS: CEFEPIME 2 GM in IV D5W 100 ML IV SCH ×2 (07:41→20:46)
[2019-08-01] MEDS: MULTIVIT W/MINERALS 1 TAB TABLET PO SCH (08:18)
[2019-08-01] MEDS: busPIRone 5 MG TABLET PO SCH ×3 (08:18→16:32)
[2019-08-01] MEDS: CHOLECALCIFEROL 1,000 UNIT TABLET (VIT D3) PO SCH (08:18)
[2019-08-01] MEDS: APIXABAN 2.5 MG TABLET PO SCH ×2 (08:19→16:32)
[2019-08-01] MEDS: LIDOCAINE 5% (PATCH) 1 EA PATCH TP SCH (08:19)
[2019-08-01] MEDS: LEVOTHYROXINE SODIUM 75 MCG TABLET PO SCH (08:23)
[2019-08-01] MEDS: PROSOURCE / PROSTAT (PYXIS) 30 ML UDC PO SCH ×2 (10:24→16:32)
--- NOTE | 2019-08-01 10:30 | NUR ---
RUBY ON RAILS DEVELOPER NOTE SEEN BY UPDATED ABOUT PATIENT CONDITION.RECOMMENDING TO HOLD ELIQUIS.ONCOLOGIST ALSO RECOMMENDING TO HOLD ELIQUIS. MADE AWARE.POSITIVE DVT AND H/O AFIB WITH RVR.WITH LOW PLATELET COUNT.OK TO HOLD ELIQUIS.WILL CONTINUE TO MONITOR.
[2019-08-01] MEDS: VANCOMYCIN 1 GM in IV D5W 250 ML IV SCH ×2 (10:51→23:29)
--- NOTE | 2019-08-01 11:07 | NUR ---
WOUND CARE CONSULT: PT SEEN FOR FULL SKIN ASSESSMENT. BLANCHABLE REDNESS NOTED TO SACRAL/BUTTOCKS AREA AND REDNESS/RASH NOTED TO PERINEAL AND INNER BUTTOCK AREAS, PRESENT ON ADMISSION. RECOMMENDATIONS MADE FOR SKIN PROTECTION AND SKIN CARE. DISCUSSED WITH NURSING STAFF. PT ON [facility] BED. WILL SEE PRN. VELAZCO IN AGREEMENT WITH PLAN OF CARE. Addendum: 08/01/19 at 1108 by ESTELA VARELA WNDNU Amended: Links added.
[2019-08-01 11:10] LABS: BASOPHILS % (AUTO) 0.4 % (0.0-2.0); EOSINOPHILS % (AUTO) 4.2 % (0.0-6.0); HEMATOCRIT 22 % (33-45); HEMOGLOBIN 7.5 g/dL (11.5-14.8); LYMPHOCYTES # (AUTO) 0.1 /CMM (0.8-4.8); MEAN CORPUSCULAR HGB CONC 34 g/dl (31.0-36.0); MEAN CORPUSCULAR VOLUME 99 fL (82-100); MONOCYTES # (AUTO) 0.4 /CMM (0.1-1.30); MONOCYTES % (AUTO) 8.1 % (2.0-12.0); NEUTROPHILS # (AUTO) 4.1 /CMM (1.8-8.9); NEUTROPHILS % (AUTO) 84.3 % (43.0-81.0); RED BLOOD CELL COUNT(AUTO) 2.23 MIL/uL (4.0-5.2); WHITE BLOOD COUNT (AUTO) 4.9 K/uL (4.3-11.0)
[2019-08-01 11:17] LABS: PLATELET COUNT (AUTO) 24 /CMM (150-450)
--- NOTE | 2019-08-01 11:23 | NUR ---
SPRAY MIXER NOTE SEEN BY ,SPOKE TO THE PATIENT EXPLAINED PLAN OF CARE.AWAITING TRANSFER TO [facility].CEDAR'S DECLINED.NEW ORDER TO GIVE LASIX 40 MG IV X1 DOSE.OK TO HOLD ELIQUIS. BECAUSE OF LOW PLATELETS.WILL CONTINUE TO MONITOR.
[2019-08-01] MEDS ORDERED: FUROSEMIDE 40 MG/4 ML VIAL IV ONE (11:30)
[2019-08-01] MEDS: ACETAMINOPHEN 325 MG TABLET PO PRN ×2 (11:44→21:09)
[2019-08-01] MEDS: ONDANSETRON HCL/PF 4 MG/2 ML VIAL IVP PRN (12:04)
--- NOTE | 2019-08-01 12:15 | NUR ---
WRAPPING CLERK NOTE DAUGHTER AT BEDSIDE. AND RETURNS CLERK BECCA MADE AWARE ABOUT DAUGHTER GER[place]IA'S REQUEST TO CALL HER.
[2019-08-01 13:02] LABS: BAND % (MANUAL) 2 % (0.0-5.0); EOSINOPHILS % (MANUAL) 8 % (0-4); LYMPHOCYTES % (MANUAL) 8 % (16-48); MONOCYTES % (MANUAL) 11 % (0-11.0); NEUTROPHILS % (MANUAL) 71 (42-76)
--- NOTE | 2019-08-01 14:36 | NUR ---
SALES DIRECTOR NOTE LEFT MESSAGE TO HOT SEALING MACHINE OPERATOR AND THAT, PER PATIENT DAUGHTER [place] SHE DONT WANT HER MOM TO BE TRANSFERRED TO [facility].WAITING FOR [facility].SHE HAS SOME ONE IN [facility] TOLD HER THAT HER MOM IN WAITING LIST #4.
[2019-08-01] MEDS: CLOTRIMAZOLE 1% 15 GM TUBE TP SCH (16:34)
[2019-08-01] MEDS ORDERED: DILTIAZEM HCL IV 125 MG in IV NS 0.9% 100 ML IV PRN (18:30)
--- NOTE | 2019-08-01 19:00 | NUR ---
RECEIVED PATIENT IN NO ACUTE DISTRESS IN BED. PATIENT IS A/O X 3 AND ABLE TO MAKE NEEDS KNOWN. PATIENT IS ON O2 VIA NASAL CANNULA AT 5LPM AND TOLERATING WELL WITH O2 SAT AT 99%. PATIENT IS ON TELEMETRY WITH AFIB WITH RVR ON THE MONITOR. PATIENT IS ASYMPTOMATIC. PATIENT IS NOT COMPLAINING OF ANY SOB, DIFFICULTY BREATHING OR PAIN AT THIS TIME. PATIENT HAS RIGHT UPPER ARM MIDLINE THAT IS CLEAN DRY INTACT AND PATENT WITH D5NS AT 50ML/HR AND PATIENT STARTED ON CARDIZEM DRIP AT 5MG/HR WITH TITRATION TO MAX 15MG/HR WITH ORDERS TO HOLD FOR HEART RATE <70 AND BLOOD PRESSURE <100. PATIENT HAS RIGHT FOOT 25G IV THAT IS CLEAN DRY AND INTACT. BED IN LOW LOCK POSITION WITH RIALS UP X 2. CALL LIGHT WITHIN REACH AND ALL SAFETY MEASURES ENSURED AND CARRIED OUT. WILL CONTINUE TO MONITOR PATIENT.
--- NOTE | 2019-08-01 19:25 | NUR ---
MACHINIST INSTRUCTOR NOTE PATIENT HAS IRREGULAR HR 1815.STAT EKG DONE .AFIB WITH RVR HR 120'S -140'S.RESULT RELAYED TO .GOT NEW ORDER TO START ON CARDIZEM DRIP.FAMILY MADE AWARE AT BEDSIDE. SPOKE TO DAUGHTER.CARDIZEM DRIP GETTIG LATE FROM PHARMACY.GOT NEW ORDER TO GIVE X1 IVP CARDIZEM 5MG FROM .PLACED ON PARAMETER FOR CARDIZEM.PATIENT AXOX3.NO SOB NO CHEST PAIN NOTED.ENDORSED TO PM NURSE FOR OLVIN.
[2019-08-01] MEDS ORDERED: DILTIAZEM HCL 50 MG IV IV ONE (19:30)
--- NOTE | 2019-08-01 20:00 | NUR ---
RIGHT FOOT IV INFILTRATED AND WAS REMOVED WITH CATHETER INTACT. NO S/S OF PHLEBITIS NOTED. PATIENT HAS RIGHT UPPER ARM MIDLINE THAT IS CLEAN DRY INTACT AND PATENT.
[2019-08-01] MEDS: diphenhydrAMINE HCL 25 MG CAPSULE PO SCH (21:09)
[2019-08-01] MEDS: IV D5/ 0.9% NACL 1,000 ML IV PRN (22:37)
--- NOTE | 2019-08-01 23:50 | NUR ---
NOTED THAT PATIENT CONVERTED AND SUSTAINED SINUS RHYTHM AT 98 BPM. WILL CONTINUE TO MONITOR FOR CHANGES IN RHYTHM.
[2019-08-02] VITALS (62 sets, daily range): BP systolic 86–156; BP diastolic 32–82
--- NOTE | 2019-08-02 00:30 | NUR ---
TITRATED O2 FROM 5LPM TO 4LPM BECAUSE PATIENT HAS O2 SAT AT 98%. WILL CONTINUE TO MONITOR.
--- NOTE | 2019-08-02 04:00 | NUR ---
TITRATED O2 FROM 4LPM TO 3LPM BECAUSE PATIENT HAS SATURATION AT 99%. WILL CONTINUE TO MONITOR.
[2019-08-02] MEDS: DILTIAZEM HCL 30 MG TABLET PO SCH ×4 (04:48→23:35)
[2019-08-02 05:14] LABS: BASOPHILS % (AUTO) 0.4 % (0.0-2.0); EOSINOPHILS % (AUTO) 3.8 % (0.0-6.0); HEMATOCRIT 28 % (33-45); HEMOGLOBIN 9.1 g/dL (11.5-14.8); LYMPHOCYTES # (AUTO) 0.2 /CMM (0.8-4.8); LYMPHOCYTES % (AUTO) 4.4 % (20.0-44.0); MEAN CORPUSCULAR HGB CONC 33 g/dl (31.0-36.0); MEAN CORPUSCULAR VOLUME 99 fL (82-100); MONOCYTES # (AUTO) 0.4 /CMM (0.1-1.30); MONOCYTES % (AUTO) 6.8 % (2.0-12.0); NEUTROPHILS # (AUTO) 4.6 /CMM (1.8-8.9); NEUTROPHILS % (AUTO) 84.6 % (43.0-81.0); RED BLOOD CELL COUNT(AUTO) 2.77 MIL/uL (4.0-5.2); WHITE BLOOD COUNT (AUTO) 5.5 K/uL (4.3-11.0)
[2019-08-02 05:23] LABS: PLATELET COUNT (AUTO) 33 /CMM (150-450)
[2019-08-02 05:30] LABS: CALCIUM, SERUM 8.4 mg/dL (8.5-10.1); CARBON DIOXIDE 32 mmol/L (21-32); CHLORIDE 101 mmol/L (98-107); CREATININE 0.9 mg/dL (0.6-1.3); GLUCOSE 106 mg/dL (74-106); MAGNESIUM 1.7 mg/dL (1.8-2.4); PHOSPHORUS 2.7 mg/dL (2.5-4.9); POTASSIUM 3.9 mmol/L (3.5-5.1); SODIUM SERUM 136 mmol/L (136-145); UREA NITROGEN, BLOOD 22 mg/dL (7-18)
--- NOTE | 2019-08-02 06:09 | NUR ---
PATIENT REMAINS IN NO ACUTE DISTRESS IN BED. PATIENT DID NOT HAVE ANY SIGNIFICANT CHANGE IN CONDITION DURING SHIFT. ALL NEEDS MET, ALL ORDERS CARRIED OUT. WILL ENDORSE CARE TO AM RN FOR CONTINUITY OF CARE.
[2019-08-02 06:26] LABS: EOSINOPHILS % (MANUAL) 2 % (0-4); LYMPHOCYTES % (MANUAL) 5 % (16-48); MONOCYTES % (MANUAL) 6 % (0-11.0); NEUTROPHILS % (MANUAL) 87 (42-76)
--- NOTE | 2019-08-02 06:49 | NUR ---
TITRATED O2 FROM 3LPM TO 2LPM BECAUSE O2 SATURATION AT 99%. WILL CONTINUE TO MONITOR.
[2019-08-02] MEDS: PANTOPRAZOLE 40 MG TABLET.DR PO SCH (07:37)
[2019-08-02] MEDS: LEVOTHYROXINE SODIUM 75 MCG TABLET PO SCH (07:37)
[2019-08-02] MEDS: ENSURE ENLIVE CHOC 237 ML CAN PO SCH ×3 (07:42→17:20)
--- NOTE | 2019-08-02 07:55 | NUR ---
DIET ASSISTANT OPENING NOTE RECEIVED REPORT FROM PM NURSE.PATIENT IN BED .NO ACUTE DISTRESS IN BED. PATIENT IS A/O X 3 AND ABLE TO MAKE NEEDS KNOWN. PATIENT IS ON O2 VIA NASAL CANNULA AT 2LPM AND TOLERATING WELL WITH O2 SAT AT 98%. PATIENT IS ON TELEMETRY WITH SR HR 84. NO SOB NO DISTRESS.NO CHEST PAIN NOTED AT THIS TIME. PATIENT HAS RIGHT UPPER ARM MIDLINE THAT IS CLEAN DRY INTACT AND PATENT WITH D5NS AT 50ML/HR AND ON CARDIZEM DRIP AT 2.5MG/HR WITH TITRATION TO MAX 15MG/HR WITH ORDERS TO HOLD FOR HEART RATE <70 AND BLOOD PRESSURE <100. SAFETY AND ASPIRATION MEASURES IN PLACE.BED IS LOW AND IN LOCKED POSITION.CALL LIGHT IN REACH.BED ALARM ON.SRX3.WILL CONTINUE TO MONITOR.
[2019-08-02] MEDS: PROSOURCE / PROSTAT (PYXIS) 30 ML UDC PO SCH ×2 (08:08→17:00)
[2019-08-02] MEDS: CEFEPIME 2 GM in IV D5W 100 ML IV SCH ×2 (08:11→20:30)
[2019-08-02] MEDS: MULTIVIT W/MINERALS 1 TAB TABLET PO SCH (08:12)
[2019-08-02] MEDS: CHOLECALCIFEROL 1,000 UNIT TABLET (VIT D3) PO SCH (08:12)
[2019-08-02] MEDS: busPIRone 5 MG TABLET PO SCH ×4 (08:12→17:02)
[2019-08-02] MEDS: LIDOCAINE 5% (PATCH) 1 EA PATCH TP SCH (08:12)
[2019-08-02] MEDS: CLOTRIMAZOLE 1% 15 GM TUBE TP SCH ×2 (08:13→17:03)
[2019-08-02] MEDS: ACETAMINOPHEN 325 MG TABLET PO PRN ×3 (08:39→21:06)
--- NOTE | 2019-08-02 09:34 | NUR ---
BRAND MARKETING SPECIALIST NOTE SEEN BY ,UPDATED ABOUT PATIENT CONDITION WITH LABS.OK TO USE SPIROMETER FOR PATIENT PER FAMILY REQUEST.WILL CONTINUE TO MONITOR. MADE AWARE ABOUT PATIENT CONDITION.ON CARDIZEM DRIP.BACK TO STABLE SINUS RHYTHM.OK TO D/C CARDIZEM.WILL CONTINUE TO MONITOR.
[2019-08-02] MEDS: VANCOMYCIN 1 GM in IV D5W 250 ML IV SCH ×2 (11:31→23:35)
[2019-08-02] MEDS: ONDANSETRON HCL/PF 4 MG/2 ML VIAL IVP PRN (12:05)
[2019-08-02] MEDS: Magnesium 1GM/D5W 100ML PREMIX 100 ML IV SCH ×2 (13:20→14:39)
--- NOTE | 2019-08-02 15:47 | NUR ---
LOT ASSOCIATE NOTE SEEN BY .UPDATED ABOUT PATIENT CONDITION WITH LABS.GOT NEW ORDER TO CHANGE CARDIZEM TO Q6H WITH SAME DOSE AND SAME PARAMETERS.SEEN BY ,UPDATED ABOUT PATIENT CONDITION WITH LABS.GOT NEW ORDER TO DECREASE IVF TO 25CC/HR.WILL CONTINUE TO MONITOR.
--- NOTE | 2019-08-02 19:00 | NUR ---
RECEIVED PATIENT IN NO ACUTE DISTRESS IN BED. PATIENT IS A/O X 3 AND ABLE TO MAKE NEEDS KNOWN. PATIENT IS ON O2 VIA NASAL CANNULA AT 3LPM AND TOLERATING WELL WITH O2 SAT AT 96%. PATIENT IS ON TELEMETRY WITH SR-ST ON THE MONITOR. PATIENT IS NOT COMPLAINING OF ANY SOB, DIFFICULTY BREATHING OR PAIN AT THIS TIME. PATIENT HAS RIGHT UPPER ARM MIDLINE THAT IS CLEAN DRY INTACT AND PATENT WITH D5NS AT 25ML/HR. PATIENT HAS RIGHT UPPER ARM PORT-A-CATH THAT IS INTACT. PATIENT HAS INCENTIVE SPIROMETER AT BEDSIDE, PATIENT TOO WEAK AT THIS TIME AND STATES "I'M TIRED". WILL TRY AGAIN WHEN PATIENT IS AWAKE. BED IN LOW LOCK POSITION WITH RIALS UP X 2. CALL LIGHT WITHIN REACH AND ALL SAFETY MEASURES ENSURED AND CARRIED OUT. WILL CONTINUE TO MONITOR PATIENT.
--- NOTE | 2019-08-02 19:13 | NUR ---
RODEO CLOWN CLOSING NOTE PATIENT IN BED .NO ACUTE DISTRESS IN BED. PATIENT IS A/O X 3 AND ABLE TO MAKE NEEDS KNOWN. PATIENT IS ON O2 VIA NASAL CANNULA AT 2LPM AND TOLERATING WELL WITH O2 SAT AT 100%. PATIENT IS ON TELEMETRY WITH SR HR 98. NO SOB NO DISTRESS.NO CHEST PAIN NOTED AT THIS TIME. PATIENT HAS RIGHT UPPER ARM MIDLINE THAT IS CLEAN DRY INTACT AND PATENT WITH D5NS AT 25ML/HR .SAFETY AND ASPIRATION MEASURES IN PLACE.BED IS LOW AND IN LOCKED POSITION.CALL LIGHT IN REACH.BED ALARM ON.SRX3.SEEN BY UPDATED ABOUT PATIENT CONDITION.WAITING FOR PLATELET TO BE>50 THEN OK TO START ON ELIQUIS.NOT RECOMMENDED PLATELET TRANSFUSION THIS POINT.ENDORSED TO PM NURSE FOR OLVIN.
[2019-08-02] MEDS: diphenhydrAMINE HCL 25 MG CAPSULE PO SCH (21:06)
[2019-08-03] VITALS (41 sets, daily range): BP systolic 89–139; BP diastolic 44–77
[2019-08-03 05:05] LABS: BASOPHILS % (AUTO) 0.7 % (0.0-2.0); EOSINOPHILS % (AUTO) 3.7 % (0.0-6.0); HEMATOCRIT 25 % (33-45); HEMOGLOBIN 8.3 g/dL (11.5-14.8); LYMPHOCYTES # (AUTO) 0.1 /CMM (0.8-4.8); LYMPHOCYTES % (AUTO) 2.6 % (20.0-44.0); MEAN CORPUSCULAR HGB CONC 33 g/dl (31.0-36.0); MEAN CORPUSCULAR VOLUME 100 fL (82-100); MONOCYTES # (AUTO) 0.4 /CMM (0.1-1.30); MONOCYTES % (AUTO) 7.3 % (2.0-12.0); NEUTROPHILS # (AUTO) 4.7 /CMM (1.8-8.9); NEUTROPHILS % (AUTO) 85.7 % (43.0-81.0); RED BLOOD CELL COUNT(AUTO) 2.49 MIL/uL (4.0-5.2); WHITE BLOOD COUNT (AUTO) 5.5 K/uL (4.3-11.0)
[2019-08-03 05:18] LABS: PLATELET COUNT (AUTO) 34 /CMM (150-450)
[2019-08-03 05:19] LABS: CALCIUM, SERUM 8.9 mg/dL (8.5-10.1); CREATININE 0.8 mg/dL (0.6-1.3); MAGNESIUM 2.4 mg/dL (1.8-2.4); PHOSPHORUS 2.9 mg/dL (2.5-4.9); POTASSIUM 4.1 mmol/L (3.5-5.1)
[2019-08-03 05:48] LABS: EOSINOPHILS % (MANUAL) 3 % (0-4); LYMPHOCYTES % (MANUAL) 5 % (16-48); MONOCYTES % (MANUAL) 4 % (0-11.0); NEUTROPHILS % (MANUAL) 88 (42-76)
[2019-08-03] MEDS: DILTIAZEM HCL 30 MG TABLET PO SCH ×4 (06:10→23:39)
[2019-08-03] MEDS: CEFEPIME 2 GM in IV D5W 100 ML IV SCH ×2 (07:07→20:38)
[2019-08-03] MEDS: LEVOTHYROXINE SODIUM 75 MCG TABLET PO SCH (07:07)
[2019-08-03] MEDS: PANTOPRAZOLE 40 MG TABLET.DR PO SCH (07:07)
[2019-08-03] MEDS: ENSURE ENLIVE CHOC 237 ML CAN PO SCH ×3 (07:16→17:32)
--- NOTE | 2019-08-03 07:20 | NUR ---
LEADED GLASS INSTALLER INITIAL NOTES Rec'd pt on bed, not in any distress but fatigued, A/O x 3. No SOB while on NC at 2-3 lpm, still has non productive cough. ST on telemonitor. Has MIGUEL midline w/ D5NS x 25 cc/hr infusing well, no s/sx of infection/infiltration noted. Has FC draining to yellowish UOP. Safety precaution in place w/ bed in lowest & locked pos. Call light placed w/in reach. Will cont to monitor & attend pt needs.
[2019-08-03] MEDS: ONDANSETRON HCL/PF 4 MG/2 ML VIAL IVP PRN (07:55)
--- NOTE | 2019-08-03 08:30 | NUR ---
Pt seen & examined by Dr. Koch, updated about pt status.
[2019-08-03] MEDS: LIDOCAINE 5% (PATCH) 1 EA PATCH TP SCH ×2 (09:00→09:25)
[2019-08-03] MEDS: MULTIVIT W/MINERALS 1 TAB TABLET PO SCH (09:25)
[2019-08-03] MEDS: CHOLECALCIFEROL 1,000 UNIT TABLET (VIT D3) PO SCH (09:25)
[2019-08-03] MEDS: busPIRone 5 MG TABLET PO SCH ×3 (09:25→17:31)
[2019-08-03] MEDS: PROSOURCE / PROSTAT (PYXIS) 30 ML UDC PO SCH ×2 (09:25→17:32)
[2019-08-03] MEDS: Z GUARD REMEDY 2 OZ OINT TP PRN (09:26)
[2019-08-03] MEDS: CLOTRIMAZOLE 1% 15 GM TUBE TP SCH ×2 (09:26→17:32)
[2019-08-03] MEDS: VANCOMYCIN 1 GM in IV D5W 250 ML IV SCH ×2 (11:28→23:38)
[2019-08-03] MEDS: IV D5/ 0.9% NACL 1,000 ML IV PRN (11:28)
--- NOTE | 2019-08-03 11:30 | NUR ---
Pt's dtr Alda feeding pt. Informed her that when feeding pt she needs to be on high back rest to prevent aspiration. RN also noted that dtr is force feeding the pt despite of pt stating that she doesn't want to eat more. Explained to the dtr that we can do small frequent feeding to the pt. But still dtr feeds the pt, concerned that pt is not eating that much & losing a lot of weight. Dtr called for help as dtr noted that pt's O2 saturation dropped to 87%. RN's noted HR went up to 120s (still ST), pt verbalized that she's feeling sweaty. Pt's O2 support increased to NC at 4lpm, positioned on high back rest. Explained to the pt's dtr the risk of aspiration when feeding pt. Dtr verbalized understanding.
--- NOTE | 2019-08-03 12:10 | NUR ---
Dtr requesting for CXR. Per Dr. August greer to order.
[2019-08-03] MEDS: ALBUTEROL FS 2.5 MG/0.5 ML VIAL.NEB NEB PRN (15:00)
[2019-08-03] MEDS: IPRATROPIUM NEB FS 0.5 MG/2.5 ML AMPUL.NEB NEB PRN (15:00)
[2019-08-03] MEDS: ACETAMINOPHEN 325 MG TABLET PO PRN ×2 (15:22→21:08)
--- NOTE | 2019-08-03 19:00 | NUR ---
CONTINUOUS LINTER DRIER OPERATOR CLOSING NOTES Pt resting on bed, not in any distress, remains A/O x 3. No SOB while on NC at [address] on telemonitor. MIGUEL midline w/ D5NS x 25 cc/hr infusing well, no s/sx of infection/infiltration noted, kept patent & intact. FC draining to yellowish UOP, patent & intact. Stool specimen was sent to lab for C.diff study. Isolation prec placed while r/o C.diff. Incontinence care provided w/ good perineal care done. Skin remains intact. Dtr Alda updated about pt status. Safety precaution in place w/ bed in lowest & locked pos. Call light placed w/in reach. Will cont to monitor & attend pt needs.
[2019-08-03] MEDS: diphenhydrAMINE HCL 25 MG CAPSULE PO SCH (21:08)
[2019-08-04] VITALS (44 sets, daily range): BP systolic 99–145; BP diastolic 41–77
[2019-08-04] MEDS: ACETAMINOPHEN 325 MG TABLET PO PRN ×2 (03:11→09:27)
[2019-08-04] MEDS: DILTIAZEM HCL 30 MG TABLET PO SCH ×4 (05:15→23:34)
[2019-08-04 05:25] LABS: CALCIUM, SERUM 8.2 mg/dL (8.5-10.1); CREATININE 0.8 mg/dL (0.6-1.3); POTASSIUM 3.8 mmol/L (3.5-5.1)
[2019-08-04 05:42] LABS: BASOPHILS % (AUTO) 0.5 % (0.0-2.0); EOSINOPHILS % (AUTO) 2.2 % (0.0-6.0); HEMATOCRIT 23 % (33-45); HEMOGLOBIN 7.5 g/dL (11.5-14.8); LYMPHOCYTES # (AUTO) 0.2 /CMM (0.8-4.8); LYMPHOCYTES % (AUTO) 2.3 % (20.0-44.0); MEAN CORPUSCULAR HGB CONC 33 g/dl (31.0-36.0); MEAN CORPUSCULAR VOLUME 99 fL (82-100); MONOCYTES # (AUTO) 0.8 /CMM (0.1-1.30); NEUTROPHILS # (AUTO) 5.8 /CMM (1.8-8.9); RED BLOOD CELL COUNT(AUTO) 2.28 MIL/uL (4.0-5.2); WHITE BLOOD COUNT (AUTO) 6.9 K/uL (4.3-11.0)
[2019-08-04 05:55] LABS: MAGNESIUM 1.8 mg/dL (1.8-2.4); PHOSPHORUS 3.4 mg/dL (2.5-4.9); PLATELET COUNT (AUTO) 40 /CMM (150-450)
[2019-08-04 06:42] LABS: BAND % (MANUAL) 1 % (0.0-5.0); EOSINOPHILS % (MANUAL) 1 % (0-4); LYMPHOCYTES % (MANUAL) 3 % (16-48); MONOCYTES % (MANUAL) 5 % (0-11.0); NEUTROPHILS % (MANUAL) 90 (42-76)
--- NOTE | 2019-08-04 07:15 | NUR ---
REGULATORY AFFAIRS SPEC INITIAL NOTES Rec'd pt on bed, asleep, easily arousable. No SOB while on NC at 2 lpm, still has non productive cough. ST on telemonitor. Has MIGUEL midline w/ D5NS x 25 cc/hr infusing well, no s/sx of infection/infiltration noted. Has FC draining to yellowish UOP. Safety precaution in place w/ bed in lowest & locked pos. On contact plus isolation while r/o C.diff. Call light placed w/in reach. Will cont to monitor & attend pt needs.
[2019-08-04] MEDS: LEVOTHYROXINE SODIUM 75 MCG TABLET PO SCH (07:31)
[2019-08-04] MEDS: PANTOPRAZOLE 40 MG TABLET.DR PO SCH (07:31)
[2019-08-04] MEDS: ENSURE ENLIVE CHOC 237 ML CAN PO SCH ×3 (07:32→17:10)
[2019-08-04] MEDS: CEFEPIME 2 GM in IV D5W 100 ML IV SCH (07:32)
--- NOTE | 2019-08-04 08:20 | NUR ---
Temp 101. Notified Madelyn CHAWLA, ordered to do panculture STAT.
--- NOTE | 2019-08-04 08:45 | NUR ---
Pt seen & examined by Dr. Koch, updated about pt status.
[2019-08-04] MEDS: LIDOCAINE 5% (PATCH) 1 EA PATCH TP SCH (09:00)
[2019-08-04] MEDS: MULTIVIT W/MINERALS 1 TAB TABLET PO SCH (09:23)
[2019-08-04] MEDS: CHOLECALCIFEROL 1,000 UNIT TABLET (VIT D3) PO SCH (09:23)
[2019-08-04] MEDS: busPIRone 5 MG TABLET PO SCH ×3 (09:23→17:11)
[2019-08-04] MEDS: Z GUARD REMEDY 2 OZ OINT TP PRN (09:24)
[2019-08-04] MEDS: CLOTRIMAZOLE 1% 15 GM TUBE TP SCH ×2 (09:24→17:09)
[2019-08-04] MEDS: PROSOURCE / PROSTAT (PYXIS) 30 ML UDC PO SCH ×2 (09:24→17:09)
--- NOTE | 2019-08-04 09:45 | NUR ---
Pt seen & examined by Dr. Oro, updated about pt status.
--- NOTE | 2019-08-04 10:00 | NUR ---
Per Dr. Koch may increase current IVF to 75 cc/hr.
[2019-08-04] MEDS: VANCOMYCIN 1 GM in IV D5W 250 ML IV SCH (11:53)
--- NOTE | 2019-08-04 12:00 | NUR ---
Pt still having loose BM (mucoid to liquid consistency), noted redness on anal area d/t incontinence, inserted rectal tube, however, pt trying to pull it out. Explained to the pt the importance of it but still pt trying to pull it out. RN removed the rectal tube. Called pt's dtr Alda & updated about pt status - pulling out rectal tube, high fever 103, refusing to eat. Per Alda, she will come & talk to the pt.
--- NOTE | 2019-08-04 14:00 | NUR ---
Dtr at bedside, updated about pt status. Pt's dtr panicking at bedside because of pt's high grade fever & increase HR. Dtr made aware that necessary measures is already being implemented. Dtr informed the ID is aware, panculture done, tylenol given, IVF rate increased, cooling measures in place. Per dtr, she wanted another Tylenol to be given to her mom. Explained to her that the next dose of Tylenol is not yet due, informed her the risk of giving another dose Tylenol to the pt. But pt's dtr still insisted, asked for Dr. Tellez to get an order & if MD can see pt LYNDSAY. Spoke w/ Dr. Tellez over the phone & updated him about pt current status & dtr's concerns. MD to see pt at 3pm. Per , okay to give another dose of Tylenol.
[2019-08-04] MEDS: ACETAMINOPHEN 650 MG/SUPP.RECT RC PRN (14:10)
--- NOTE | 2019-08-04 15:00 | NUR ---
Pt seen & examined by Dr. Tellez, made him aware that pt is positive for C.diff. MD ordered to start Vancocin 250 mg q6h PO & Motrin 200 mg q6h PRN for Temp >101. Dtr Alda at bedside, her questions and concerns answered by Dr. Tellez at bedside.
[2019-08-04] MEDS: ONDANSETRON HCL/PF 4 MG/2 ML VIAL IVP PRN (15:50)
[2019-08-04] MEDS: VANCOMYCIN HCL 125 MG/2.5 ML ORAL.SUSP PO SCH ×2 (17:09→17:12)
[2019-08-04] MEDS: IV D5/ 0.9% NACL 1,000 ML IV PRN (17:55)
--- NOTE | 2019-08-04 18:49 | NUR ---
CNC LATHE MACHINE OPERATOR CLOSING NOTES Pt resting on bed, not in any distress, sleeping but arousable. No SOB while on NC at [address] on telemonitor. MIGUEL midline w/ D5NS x 75 cc/hr infusing well, no s/sx of infection/infiltration noted, kept patent & intact. FC draining to yellowish UOP, patent & intact. Rectal tube in place w/ liquid stool. Contact plus isolation observed at all times. Incontinence care provided w/ good perineal care done. Safety precaution kept in place w/ bed in lowest & locked pos. Call light placed w/in reach. Will endorse to PM RN for OLVIN.
[2019-08-04] MEDS: IBUPROFEN SUSP 100 MG/5 ML UDC PO PRN (18:57)
[2019-08-04] MEDS ORDERED: CEFTRIAXONE 1 G VIAL ONE (20:20)
[2019-08-04] MEDS: CEFTRIAXONE 1 G in IV D5W 50 ML IV SCH (20:40)
[2019-08-04] MEDS: diphenhydrAMINE HCL 25 MG CAPSULE PO SCH (21:37)
[2019-08-04] MEDS: HYDROCODONE/APAP 5/325MG 1 EACH TABLET PO PRN (22:30)
[2019-08-05] VITALS (35 sets, daily range): BP systolic 43–159; BP diastolic 14–71
[2019-08-05] MEDS: VANCOMYCIN HCL 125 MG/2.5 ML ORAL.SUSP PO SCH ×5 (00:20→23:23)
[2019-08-05] MEDS: ACETAMINOPHEN 650 MG/SUPP.RECT RC PRN (02:50)
[2019-08-05] MEDS: HYDROCODONE/APAP 5/325MG 1 EACH TABLET PO PRN (03:31)
[2019-08-05] MEDS: DILTIAZEM HCL 30 MG TABLET PO SCH ×4 (05:17→23:24)
[2019-08-05] MEDS: IV D5/ 0.9% NACL 1,000 ML IV PRN (05:17)
[2019-08-05 05:30] LABS: CALCIUM, SERUM 8.5 mg/dL (8.5-10.1); CARBON DIOXIDE 24 mmol/L (21-32); CHLORIDE 99 mmol/L (98-107); CREATININE 0.9 mg/dL (0.6-1.3); GLUCOSE 140 mg/dL (74-106); POTASSIUM 3.7 mmol/L (3.5-5.1); SODIUM SERUM 132 mmol/L (136-145); UREA NITROGEN, BLOOD 14 mg/dL (7-18)
--- NOTE | 2019-08-05 07:15 | NUR ---
TOP PRINTING PRESS OPERATOR OPENING NOTES RECEIVED PT LYING ON BED.ALERT/ORIENTED X1,OPEN EYES WITH TOUCH.ON TELE HR IS [address]NO SOB AND ACUTE DISTRESS NOTED.ON FLEXI SEAL PRESENT WITH WATERY DIARRHEA PRESENT,REPORTED THERE IS MILD LEAKING ON FLEXI SEAL.ON SEGURA CATHETER IN PLACE.RIGHT UPPER ARM MIDLINE PRESENT WITH D5NS@75 MLS/HR SI RUNNING.SITE IS CLEAN/DRY/INTACT,NO INFILTRATION PRESENT.SAFETY IS MAINTAINED AT ALL TIMES,BED IS IN LOW POSITION AND LOCKED,CALL LIGHT IS WITHIN REACH.WILL CONTINUE TO MONITOR THE PT CLOSELY.
[2019-08-05] MEDS: CHOLECALCIFEROL 1,000 UNIT TABLET (VIT D3) PO SCH (08:29)
[2019-08-05] MEDS: LEVOTHYROXINE SODIUM 75 MCG TABLET PO SCH (08:29)
[2019-08-05] MEDS: MULTIVIT W/MINERALS 1 TAB TABLET PO SCH (08:29)
[2019-08-05] MEDS: PANTOPRAZOLE 40 MG TABLET.DR PO SCH (08:29)
[2019-08-05] MEDS: busPIRone 5 MG TABLET PO SCH ×3 (08:29→17:03)
[2019-08-05] MEDS: LIDOCAINE 5% (PATCH) 1 EA PATCH TP SCH (08:30)
--- NOTE | 2019-08-05 08:55 | NUR ---
PALAEONTOLOGIST NOTES PT NOTED WITH TACHYCARDIA,130-140'S BPM AND TEMPERATURE IS 100.1F,BP IS LOW AND PT LOOKS MORE LETHARGIC.COOLING MEASURES DONE,MADE PT COMFORT AND ORDERED TO INCREASE THE D5NS TO 100MLS/HR AND GIVE IV NS 500ML BOLUS.NEW ORDERS NOTED AND CARRIED OUT.
[2019-08-05] MEDS ORDERED: IV D5/ 0.9% NACL 1,000 ML IV PRN (09:00)
[2019-08-05] MEDS: PROSOURCE / PROSTAT (PYXIS) 30 ML UDC PO SCH ×2 (09:00→18:12)
[2019-08-05] MEDS ORDERED: IV NS 0.9% 500 ML BAG IV ONE (09:00)
[2019-08-05] MEDS: ENSURE ENLIVE CHOC 237 ML CAN PO SCH ×3 (09:33→18:12)
[2019-08-05] MEDS: CLOTRIMAZOLE 1% 15 GM TUBE TP SCH ×2 (09:34→18:13)
[2019-08-05 10:29] LABS: BASOPHILS % (AUTO) 0.1 % (0.0-2.0); EOSINOPHILS % (AUTO) 0.4 % (0.0-6.0); HEMATOCRIT 22 % (33-45); HEMOGLOBIN 7.2 g/dL (11.5-14.8); LYMPHOCYTES # (AUTO) 0.1 /CMM (0.8-4.8); LYMPHOCYTES % (AUTO) 1.4 % (20.0-44.0); MEAN CORPUSCULAR HGB CONC 33 g/dl (31.0-36.0); MEAN CORPUSCULAR VOLUME 99 fL (82-100); MONOCYTES % (AUTO) 10.6 % (2.0-12.0); NEUTROPHILS # (AUTO) 7.9 /CMM (1.8-8.9); NEUTROPHILS % (AUTO) 87.5 % (43.0-81.0); RED BLOOD CELL COUNT(AUTO) 2.19 MIL/uL (4.0-5.2)
[2019-08-05 10:36] LABS: PLATELET COUNT (AUTO) 49 /CMM (150-450)
[2019-08-05 11:15] LABS: BAND % (MANUAL) 3 % (0.0-5.0); LYMPHOCYTES % (MANUAL) 2 % (16-48); MONOCYTES % (MANUAL) 9 % (0-11.0); NEUTROPHILS % (MANUAL) 86 (42-76)
[2019-08-05] MEDS: DILTIAZEM HCL IV 125 MG in IV NS 0.9% 100 ML IV PRN (11:15)
--- NOTE | 2019-08-05 11:15 | NUR ---
DISTILLER NOTES @1015 ,CASH APPLICATIONS COORDINATOR ORDERED CARDIZEM IV FOR TACHYCARDIA STARTS @ 2.5MG/KG FOR HR <120 BPM AND HOLD IF SBP <100 MMHG. @1030 VERBALLY SAID ITS OK TO START IV CARDIZEM FOR HR 123-126,[place] THE PARAMETER SAYS FOR HR <120'S.
[2019-08-05] MEDS: METRONIDAZOLE 500MG/ NS 100ML 500 MG in PREMIX 1 EA IV SCH ×2 (11:45→21:21)
[2019-08-05] MEDS: ONDANSETRON HCL/PF 4 MG/2 ML VIAL IVP PRN ×2 (13:11→18:59)
--- NOTE | 2019-08-05 17:30 | NUR ---
LINE OPERATOR NOTES NASAL PROBE TEMPERATURE INCREASED TO 104 F,HR IS 150 BPM,R-42.COOLING MEASURES DONE,TYLENOL SUPPOSITORY GIVEN,PLACED ON COOLING BLANKET.FAMILY IS AT BEDSIDE.THE TEMPERATURE WENT DOWN TO 103F.
[2019-08-05] MEDS: IBUPROFEN SUSP 100 MG/5 ML UDC PO PRN ×2 (18:07→23:23)
--- NOTE | 2019-08-05 19:03 | NUR ---
WET MIX OPERATOR ZOFRAN GIVEN FOR C/O NAUSEA.
--- NOTE | 2019-08-05 19:05 | NUR ---
CORPORATE TREASURY ANALYST CLOSING NOTES PT IS LYING ON BED WITH COOLING BLANKET IS IN PLACE.ON NC 2-3LPM O2 CONTINUOUSLY,NO SOB AND ACUTE DISTRESS NOTED.IV LINE IS IN PLACE.RESPIRATION IS EVEN AND NONLABORED.IV CARDIZEM 7.5MG IS RUNNING NOW.ENDORSED TO TALENT ENGINEER RN FOR OLVIN.
[2019-08-05] MEDS: CEFTRIAXONE 1 G in IV D5W 50 ML IV SCH (20:34)
[2019-08-05] MEDS: diphenhydrAMINE HCL 25 MG CAPSULE PO SCH (21:21)
[2019-08-05] MEDS: ACETAMINOPHEN 325 MG TABLET PO PRN (21:21)
[2019-08-06] VITALS (52 sets, daily range): BP systolic 77–153; BP diastolic 26–96
--- NOTE | 2019-08-06 00:43 | NUR ---
CONTACTED DR. PORTILLO CLIP BOLTER AND WRAPPER MD FOR CRITICAL LAB VALUE LACTIC ACID 3.0 RECEIVED ORDERS TO GIVE 1 LITER BOLUS, SWITCH D5NS TO REGULAR NS AND RECHECK LACTIC ACID IN 6 HOURS. READ BACK ORDERS PERFORMED AND CARRIED OUT. WILL CONTINUE TO MONITOR PATIENT.
[2019-08-06] MEDS ORDERED: IV NS 0.9% 1,000 ML IV PRN ×2 (01:00)
[2019-08-06 02:22] LABS: ABG BASE EXCESS -4.3 mmol/L; ABG OXYGEN SATURATION 96.4 % (92.0-98.5); ABG PCO2 27.3 mmHg (35.0-45.0); ABG PH 7.457 (7.350-7.450); ABG PO2 92.2 mmHg (75.0-100.0); AaDO2 140.7 mmHg; COHb 0.4 % (0.5-1.5); MetHb 0.8 % (0.0-1.5); O2Hb 95.2 % (94.0-97.0); SITE, ABG Right Radial; VENT MODE, BG Nasal Cannula
--- NOTE | 2019-08-06 02:30 | NUR ---
PATIENT BECAME TACHYPNIC WITH RESPIRATIONS IN THE 30S. PATIENT COMPLAINING THAT SHE IS TOO COLD AND WANTED THE COOLING BLANKET OFF. TOOK ABG SHOWING PH 7.45, CO2- 27.3, O2- 92.2, HCO3- 18.8. 0245- NOTIFIED DR. PORTILLO OF THE RESULTS AND PATIENT CONDITION. GIVEN ORDERS TO TRY AND TURN OFF THE COOLING BLANKET AND CONTINUE COOLING MEASURES WITH ICE. ALSO RECEIVED ORDERS FOR ATIVAN 0.5MG IV X1 FOR AGITATION. 0300- AFTER REMOVING BLANKET AND PLACING ICE PACKS IN THE AXILLARY AND GROIN WITH A COLD COMPRESS ON THE HEAD PATIENT STATED "I FEEL BETTER". RESPIRATIONS DECREASED TO 22. 0315- PATIENT REQUESTED ATIVAN BECAUSE SHE IS FEELING ANXIOUS- GAVE THE ATIVAN 0.5MG X 1 ATIVAN. WILL ASSESS PATIENT ANXIETY LEVEL. PATIENT IS CALM AND RESTING IN BED.
[2019-08-06] MEDS: ACETAMINOPHEN 325 MG TABLET PO PRN ×3 (02:49→15:25)
[2019-08-06] MEDS ORDERED: LORAZEPAM INJ 2 MG/ML VIAL IV ONE (03:00)
[2019-08-06] MEDS: METRONIDAZOLE 500MG/ NS 100ML 500 MG in PREMIX 1 EA IV SCH ×3 (04:00→20:00)
[2019-08-06 04:34] LABS: BASOPHILS # (AUTO) 0.1 /CMM (0.0-0.2); BASOPHILS % (AUTO) 1.3 % (0.0-2.0); EOSINOPHILS % (AUTO) 0.5 % (0.0-6.0); LYMPHOCYTES # (AUTO) 0.1 /CMM (0.8-4.8); LYMPHOCYTES % (AUTO) 1.2 % (20.0-44.0); MEAN CORPUSCULAR HGB CONC 34 g/dl (31.0-36.0); MEAN CORPUSCULAR VOLUME 99 fL (82-100); MONOCYTES % (AUTO) 12.2 % (2.0-12.0); NEUTROPHILS # (AUTO) 6.7 /CMM (1.8-8.9); NEUTROPHILS % (AUTO) 84.8 % (43.0-81.0); WHITE BLOOD COUNT (AUTO) 7.9 K/uL (4.3-11.0)
[2019-08-06 04:59] LABS: CALCIUM, SERUM 7.9 mg/dL (8.5-10.1); CREATININE 0.9 mg/dL (0.6-1.3); MAGNESIUM 1.5 mg/dL (1.8-2.4); PHOSPHORUS 2.7 mg/dL (2.5-4.9); POTASSIUM 3.3 mmol/L (3.5-5.1)
[2019-08-06 05:09] LABS: RED BLOOD CELL COUNT(AUTO) 1.93 MIL/uL (4.0-5.2)
[2019-08-06 05:15] LABS: HEMATOCRIT 19 % (33-45); HEMOGLOBIN 6.5 g/dL (11.5-14.8); PLATELET COUNT (AUTO) 47 /CMM (150-450)
[2019-08-06] MEDS: DILTIAZEM HCL 30 MG TABLET PO SCH ×3 (05:30→17:25)
[2019-08-06] MEDS: VANCOMYCIN HCL 125 MG/2.5 ML ORAL.SUSP PO SCH ×3 (05:30→17:27)
[2019-08-06] MEDS: IBUPROFEN SUSP 100 MG/5 ML UDC PO PRN ×3 (05:31→19:49)
--- NOTE | 2019-08-06 06:08 | NUR ---
PER DR. WATKINS NOTES WILL GIVE 1 UNIT PRBC BECAUSE HGB IS 6.5, <7.
--- NOTE | 2019-08-06 06:14 | NUR ---
PATIENT CONVERTED TO AFIB/AFLUTTER. INCREASED CARDIZEM DRIP FROM 2.5-5. WILL CONTINUE TO MONITOR.
--- NOTE | 2019-08-06 07:00 | NUR ---
patient remains in no acute distress in bed. patient converted to afib/aflutter and on cardizem drip. patient became confused this morning with no s/s of stroke noted. reoriented patient. spoke with the daughter and updated patient status. endorsed care to Deanna Frederick for continuity of care. 0730- Questioned patient and patient is able to state her name, birthday, and her location. Updated deanna FREDERICK.
--- NOTE | 2019-08-06 07:10 | NUR ---
RN INITIAL NOTES RECEIVED PT A/O WITH PERIODS OF CONFUSION. ON 02 VIA NC. HOB ELEVATED. A.FIB ON MONITOR. ON CARDIZEM DRIP. MIGUEL MIDLINE IN PLACE. IVF INFUSING. FC IN PLACE. FLEXISEAL IN PLACE. PT REPOSITIONED. PT FOR BLOOD TRANSFUSION, 1 UNIT OF PRBC. NO SIGNS OF ACTIVE BLEEDING NOTED. WILL CLOSELY MONITOR.
[2019-08-06 07:51] LABS: LYMPHOCYTES % (MANUAL) 5 % (16-48); MONOCYTES % (MANUAL) 10 % (0-11.0); NEUTROPHILS % (MANUAL) 85 (42-76)
[2019-08-06] MEDS: ONDANSETRON HCL/PF 4 MG/2 ML VIAL IVP PRN ×2 (08:19→16:07)
[2019-08-06] MEDS: busPIRone 5 MG TABLET PO SCH ×3 (08:47→16:07)
[2019-08-06] MEDS: LEVOTHYROXINE SODIUM 75 MCG TABLET PO SCH (08:47)
[2019-08-06] MEDS: MULTIVIT W/MINERALS 1 TAB TABLET PO SCH (08:47)
[2019-08-06] MEDS: CHOLECALCIFEROL 1,000 UNIT TABLET (VIT D3) PO SCH (08:47)
[2019-08-06] MEDS: ENSURE ENLIVE CHOC 237 ML CAN PO SCH ×3 (08:47→17:25)
[2019-08-06] MEDS: PANTOPRAZOLE 40 MG TABLET.DR PO SCH (08:47)
[2019-08-06] MEDS: LIDOCAINE 5% (PATCH) 1 EA PATCH TP SCH (08:48)
[2019-08-06] MEDS: CLOTRIMAZOLE 1% 15 GM TUBE TP SCH ×2 (08:59→16:07)
[2019-08-06] MEDS: PROSOURCE / PROSTAT (PYXIS) 30 ML UDC PO SCH ×2 (08:59→16:07)
[2019-08-06] MEDS: DILTIAZEM HCL IV 125 MG in IV NS 0.9% 100 ML IV PRN (10:16)
[2019-08-06] MEDS ORDERED: POTASSIUM CHLORIDE 20 MEQ TAB.PRT.SR PO SCH (11:00)
[2019-08-06] MEDS: Magnesium 1GM/D5W 100ML PREMIX 100 ML IV SCH ×2 (12:02→13:14)
--- NOTE | 2019-08-06 13:00 | NUR ---
RN NOTES JOSEFINA ZHENG, ZEN MADE AWARE OF CURRENT LAB VALUES AND CXR RESULT. HGB 6.5/HCT 19. GIVEN 1 UNIT OF PRBC. NO BLOOD TRANSFUSION REACTION NOTED. POTASSIUM 3.3, REPLACED WITH 20MEQ. MAGNESIUM 1.5, REPLACED WITH 2GMS TOTAL. FOR POSSIBLE TRANSFER TO HIGHER LEVEL OF CARE. WILL CLOSELY MONITOR
[2019-08-06 13:12] LABS: APPEARANCE,URINE SL CLOUDY (CLEAR); BILIRUBIN,URINE NEGATIVE (NEGATIVE); BLOOD, URINE MODERATE Ery/uL (NEGATIVE); COLOR,URINE DARK YELLO (YELLOW); KETONES,URINE NEGATIVE (NEGATIVE); LEUKOCYTE ESTERASE ,URINE NEGATIVE (NEGATIVE); NITRITE, URINE NEGATIVE (NEGATIVE); PH,URINE 5.5 (5.0-8.0); PROTEIN,URINE 100 mg/dl (NEGATIVE); UGLUCOSE NEGATIVE (NEGATIVE); UROBILINOGEN,URINE 0.2 EU/dL (0.2)
[2019-08-06 13:36] LABS: BACTERIA,URINE Rare /HPF (None Seen); SQUAMOUS EPITHELIAL CELL,UR Few /HPF (None Seen)
[2019-08-06 13:39] LABS: COARSE GRANULAR CASTS,URINE Moderate /LPF (None Seen)
[2019-08-06] MEDS ORDERED: CLONIDINE HCL 0.1 MG TABLET GT PRN (14:00)
--- NOTE | 2019-08-06 16:33 | NUR ---
RT Attempted to collect sputum and was unsuccessful. Pt does not have any productive sputum at this time, despite coaching to cough. JUDY Huerta notified and aware.
[2019-08-06] MEDS: METOCLOPRAMIDE HCL 10 MG/2 ML VIAL IV PRN (17:27)
--- NOTE | 2019-08-06 18:39 | NUR ---
RN NOTES CALLED [facility] #[phone] EXT [phone]. SPOKE WITH JUDY GRAY. ALL PERTINENT INFO GIVEN. PT GOING TO ROOM [id number]. PT AND DAUGHTER AWARE.
--- NOTE | 2019-08-06 18:46 | NUR ---
RN CLOSING NOTES NO SIGNIFICANT CHANGE NOTED. PT ON CARDIZEM DRIP, WILL BE DISCONTINUED PRIOR TRANSFER ORDERED BY JOSEFINA ZHENG DNP. AFEBRILE. ON 02 VIA NE. NO RESPIRATORY DISTRESS NOTED. DENIES ANY PAIN. MIDLINE IN PLACE. FC AND FLEXISEAL IN PLACE. REPOSITIONED Q2. KEPT CLEAN AND DRY. BLE ELEVATED. AWAITING TRANSFER TO [facility]. WILL ENDORSE FOR CONTINUITY OF CARE.
[2019-08-06] MEDS ORDERED: IPRA0.2S9 NEB (19:14)
[2019-08-06] MEDS ORDERED: ACET325T53 PO (19:14)
[2019-08-06] MEDS ORDERED: VANC125C11 PO (19:14)
[2019-08-06] MEDS ORDERED: CLOT15CR35 TP (19:14)
[2019-08-06] MEDS ORDERED: ALBU2.5V13 NEB (19:14)
[2019-08-06] MEDS ORDERED: METO5VIA6 IV (19:14)
[2019-08-06] MEDS ORDERED: BUSP5TAB3 PO (19:14)
[2019-08-06] MEDS ORDERED: IBUP-2267 PO (19:14)
[2019-08-06] MEDS ORDERED: DILT30TA14 PO (19:14)
[2019-08-06] MEDS ORDERED: CEFT1FRO2 IV (19:15)
--- NOTE | 2019-08-06 19:50 | NUR ---
Received patient awake alert and oriented x 2.VSS.Afib 99 per monitor.On Cardizem gtt and IVF infusing via MIGUEL ML and site intact.Respiration even and unlabored with O2 2LNC saturation 96%.FC to gravity drainage and Flexi seal.Patient medicated with motrin for body ache as requested by daughter at bedside.Turned and repositioned.Contact plus isolation protocol for c-diff maintained.
--- NOTE | 2019-08-06 20:34 | NUR ---
Patient for transfer to [facility].Transport [facility] here and report given to Kishor. Cardizem gtt and IVF discontinued per order.FC and Flexi seal and MID LINE left in place. All belongings given to daughter.Discharge papers and instructions given to Kishor.Patient left with luann via ACLS protocol in stable condition.
== END 2019-08-06 20:56 | disposition short-term general hospital (02) | DRG 871 ==
LOC: ER 19:37 → TELE1 21:38 → ICU 07-28 16:39
PROVIDERS: ADMIT Student in an Organized Health Care Education/Training Program; ATTEND Nurse Practitioner Acute Care
PROC: 05H933Z Insertion of Infusion Device into Right Brachial Vein, Percutaneous Approach (ICD-10-PCS; 2019-07-28)
PROC: 30233N1 Transfusion of Nonautologous Red Blood Cells into Peripheral Vein, Percutaneous Approach (ICD-10-PCS; principal; 2019-07-30)
DX: A41.9 Sepsis, unspecified organism (principal); J18.9 Pneumonia, unspecified organism; R65.21 Severe sepsis with septic shock; J15.4 Pneumonia due to other streptococci; J96.01 Acute respiratory failure with hypoxia; C85.90 Non-Hodgkin lymphoma, unspecified, unspecified site; I82.412 Acute embolism and thrombosis of left femoral vein; A04.72 Enterocolitis due to Clostridium difficile, not specified as recurrent; D47.3 Essential (hemorrhagic) thrombocythemia; K21.9 Gastro-esophageal reflux disease without esophagitis; Z85.3 Personal history of malignant neoplasm of breast; Z86.718 Personal history of other venous thrombosis and embolism; Z79.899 Other long term (current) drug therapy; E83.42 Hypomagnesemia; F41.9 Anxiety disorder, unspecified; I10 Essential (primary) hypertension; I48.91 Unspecified atrial fibrillation; I25.10 Atherosclerotic heart disease of native coronary artery without angina pectoris; Z90.710 Acquired absence of both cervix and uterus; Z90.12 Acquired absence of left breast and nipple; Z79.01 Long term (current) use of anticoagulants; E89.0 Postprocedural hypothyroidism; I70.0 Atherosclerosis of aorta; Z92.21 Personal history of antineoplastic chemotherapy; Y95 Nosocomial condition; I89.0 Lymphedema, not elsewhere classified; D70.3 Neutropenia due to infection
CPT/HCPCS: 36415; 36600; 71045-TC; 71250-TC; 76770-TC; 80048-TC; 80053-TC; 80061-TC; 80076-TC; 80202-TC; 81000-TC; 82803-TC; 82962-TC; 83605-TC; 83735-TC; 83880; 84100-TC; 84443-TC; 84484-TC; 85025-TC; 85610-TC; 85730-TC; 86850-TC; 86921-TC; 87040-TC; 87081-TC; 87086-TC; 93307-TC; 93971-TC; 94760-TC; 94799-TC; A4216; A4217; A6253; A6403; G0378; J0282; J0290; J0692; J0696; J1940; J2060; J2185; J2370; J2405; J2765; J2920; J3370; J3475; J3480; J3490; J7030; J7042; J7050; J7060; P9016-BL; Q0163; Q9967